=== PATIENT | male | born 1950 | race Caucasian/White ===

== ENCOUNTER 2018-07-03 03:42 | Emergency (ER) | payer MEDICARE, OTHER, SELFPAY ==
[2018-07-03 03:42] VITALS: BP 174/81; PULSE 98; RESP 16; TEMP 36.5; O2SAT 98; BMI 38.8
--- NOTE | 2018-07-03 03:47 | ED.DCSUM_ITS ---
- ER Visit Summary Date of Service: 07/03/18 Chief Complaint: Right hip pain History of Present Illness: The patient is a 68 M presenting for evaluation secondary to right hip pain. Patient reports that he had a history of a left hip total arthroplasty performed approximately 10 or so years ago. Patient s tates that he has not had any sort of new injury, but he reports that he has been having increasing right hip pain and especially over the course of the last 2 days to the point where it is causing him some difficulty with ambulation. Patient reports that this has been refractory to increase use of NSAID and Tylenol analgesia. Patient states that the pain is in his hip worse with movement worse with ambulation and not associated with any sort of fevers night sweats unintended weight loss recent surgery or injections. Physical Examination: Physical exam unremarkable except for lower extremity exam. Patient has 2+ PT pulses that are bilaterally symmetric. Patient has some pain with palpation of the greater trochanter and pain with both internal and external rotation of the hip. Limited range of motion secondary to pain. Test Results: Right hip x-ray demonstrates evidence of some arthritis but no evidence of fracture or bony erosions. Emergency Department Course and Treatment: Patient presented for evaluation secondary to hip pain. He does not have any symptomatology that would be consistent with septic arthritis. Patient's pain was treated with tramadol he had some improvement on repeat evaluation at 5 AM. X-ray shows no evidence of acute pathology. I believe the patient likely has degenerative disease of his hip, I did recommend that he follow-up with his orthopedist as it may be time to pursue total hip arthroplasty. He voiced understanding and the patient was discharged. Disposition: Discharge Impression: 1. Right hip arthritis This note was generated with [employer] dictation software. It may contain incorrect words, spelling, and punctuation that were not noted in review of the chart prior to signing ED Disposition - Plan for ED Patient: Disposition: Home or Assisted Living Chief Complaint: Lower Extremity Injury Diagnosis: Arthritis of right hip Instructions: ED Degenerative Joint Disease Prescriptions: traMADol [Ultram] 50 mg PO Q4H PRN PRN 3 Days #20 tab PRN Reason: Pain Referrals: Davy Guevara [NON-STAFF] -
--- NOTE | 2018-07-03 04:07 | RAD_ITS ---
STUDY: X-RAY - RIGHT HIP REASON FOR EXAM: Male, 68 years old. Pain TECHNIQUE: 2 views of the hip. COMPARISON: None. FINDINGS: Normal femoral head, neck, intertrochanteric region and visualized proximal femur. Normal acetabulum. There is mild articular joint space narrowing. Normal visualized superior and inferior pubic rami and ischial tuberosities. LEFT hip replacement hardware is intact. RAD/HIP, UNI W/ Pelvis 2-3 Views IMPRESSION: Normal x-ray examination of the hip. Electronically Signed: Stephen Villareal MD at 4:54 EST , Service support ,
[2018-07-03] MEDS: traMADol 50 MG Tablet PO (04:25)
[2018-07-03 05:10] VITALS: BP 150/80; PULSE 78; RESP 16; O2SAT 96
== END 2018-07-03 05:10 | disposition home or self-care (01) ==
PROVIDERS: Emergency Provider Emergency Medicine; Family Provider Family Medicine; PCP Family Medicine
DX: M16.11 Unilateral primary osteoarthritis, right hip (principal); E11.9 Type 2 diabetes mellitus without complications; E66.9 Obesity, unspecified; Z68.38 Body mass index [BMI] 38.0-38.9, adult; Z79.4 Long term (current) use of insulin; Z79.82 Long term (current) use of aspirin; Z79.899 Other long term (current) drug therapy
CPT/HCPCS: 73502; 99283

== ENCOUNTER 2018-09-29 19:06 | Inpatient (IN) | payer MEDICARE, OTHER, SELFPAY ==
[2018-09-29 19:07] VITALS: BP 167/84; PULSE 100; RESP 18; TEMP 37.3; O2SAT 96; BMI 41.4
[2018-09-29] MEDS: morphine 10 MG/ML Syringe IM (19:33)
[2018-09-29] MEDS: Ondansetron 4 MG/2 ML Vial IM (19:33)
--- NOTE | 2018-09-29 19:41 | RAD_ITS ---
STUDY: X-RAY - PELVIS AND RIGHT HIP REASON FOR EXAM: Male, 68 years old. Severe back pain. TECHNIQUE: 3 views of the pelvis and hip. COMPARISON: 07/03/2018. FINDINGS: There is a non-specific bowel gas pattern. Normal visualized soft tissue structures. Normal bilateral iliac wings, sacroiliac joints and visualized sacrum. Normal bilateral superior and inferior pubic rami. Normal pubic symphysis. Normal bilateral ischial tuberosities. There are osteoarthritic changes of the femoral head with marginal osteophyte formation. Sclerotic acetabulum. There is moderate articular joint space narrowing of the hip. RAD/HIP, UNI W/ Pelvis 2-3 Views IMPRESSION: No acute fracture or dislocation. Degenerative changes of the hip. Electronically Signed: Álvaro Terry MD at 20:05 EDT , Service support ,
--- NOTE | 2018-09-29 19:41 | RAD_ITS ---
STUDY: X-RAY - LUMBAR SPINE REASON FOR EXAM: Male, 68 years old. SEVERE BACK AND RIGHT HIP PAIN TECHNIQUE: 3 view(s) of the lumbar spine were obtained. COMPARISON: None FINDINGS: Normal lumbar lordosis. There is no substantial scoliosis. There is a normal alignment of the vertebrae. There is multilevel endplate spondylosis of the lumbar vertebrae. There is multi-level degenerative disc disease with multi-level disc space narrowing. There is no demonstrated fracture. There is atherosclerotic calcification of the abdominal aorta without a demonstrated aneurysm. RAD/Lumbar Spine 2 or 3 Views IMPRESSION: No acute abnormality. Degenerative changes. Electronically Signed: Álvaro Terry MD at 20:07 EDT , Service support ,
[2018-09-29] MEDS: diazePAM 5 MG Tablet 2.5 MG PO (20:41)
[2018-09-29 21:08] LABS: Absolute Neutrophil Count 5.4 X10^3/uL (2.0-7.7); Basophil# 0.02 X10^3/uL; Basophil% 0.3 % (0-1); Eosinophil# 0.17 X10^3/uL; Eosinophils% 2.3 % (0-5); Hematocrit 39.7 % (40-54); Hemoglobin 13.4 g/dl (13.0-16.5); Lymphocyte % 14.9 % (19-41); Mean Corp Hgb Conc 33.8 g/gl (32-36); Mean Corpuscular Hgb 30.1 pg (27.0-32.0); Mean Corpuscular Volume 89.2 fL (80-94); Mean Platelet Vol. 9.8 fl (6.2-12.0); Monocyte# 0.66 X10^3/uL; Neutrophil # 5.41 X10^3/uL (2.7-7.7); Neutrophil % 73.4 % (47-70); Platelet Count 176 K/mm3 (150-450); RBC Distribution Width CV 14.6 % (11.6-14.6); RBC Distribution Width SD 46.8 fl (35.1-43.9); Red Blood Count 4.45 M/mm3 (4.6-6.2); White Blood Count 7.4 K/mm3 (4.4-11.0)
[2018-09-29 21:19] LABS: Anion Gap 5 (5-15); BUN 34 mg/dL (7-18); BUN/Creat Ratio 22.4 RATIO (10-20); Calcium,Total 8.8 mg/dL (8.5-10.1); Chloride 109 mmol/L (98-107); Creatinine, Serum 1.52 mg/dL (0.70-1.30); EST Glomerular Filtration Rate 48 mL/min (>60); Est Glom Filt Rate - Afr Amer 59 mL/min (>60); Estimated Creatinine Clearance 43.75 ml/min; Glucose 129 mg/dL (74-106); Potassium 4.7 mmol/L (3.5-5.1); Sodium Level 141 mmol/L (136-145)
[2018-09-29 21:22] LABS: POSITIVE COUNT NO; POSITIVE DIFFERENTIAL NO; POSITIVE MORPHOLOGY NO
--- NOTE | 2018-09-29 21:39 | ED.VISSUMM ---
- ER Visit Summary Date of Service: 09/29/18 Chief Complaint: Right hip pain History of Present Illness: The patient is a 68 M presenting with right hip pain. He states this started on Tuesday. He states he was outside in his garden and twisted his right hip. He has had severe pain since. He was seen by his chiropractor and had no improvement of his symptoms. He has been taking ibuprofen at home. He took 1 Percocet which did seem to help. The pain worsened today. He denies bowel or bladder incontinence. Denies other complaints. Physical Examination: Vitals are stable. Patient is afebrile. Alert no acute distress. HEENT exam is unremarkable. Neck is supple. Lungs are clear and equal bilaterally. Heart is regular rate and rhythm. Abdomen is soft nontender nondistended. Back right paraspinal lumbar muscle tenderness, no midline tenderness Extremities right lateral hip tenderness Skin is warm and dry. No focal neurologic deficit. Normal strength and sensation Remainder of exam is unremarkable. Emergency Department Course and Treatment: Lumbar spine x-ray shows no acute process. Right hip x-ray shows no acute process. CBC, chemistries unremarkable other than BUN 34, creatinine 1.52. Patient was given morphine, Zofran. He continues to have pain and was given Valium. He is unable to stand or ambulate in the ED. Discussed with the hospitalist for observation. Disposition: Observation Impression: Intractable back pain, inability to ambulate This note was generated with [employer] dictation software. It may contain incorrect words, spelling, and punctuation that were not noted in review of the chart prior to signing ED Disposition - Plan for ED Patient: Referrals: Rafael Velasquez III, MD [Primary Care Provider] -
--- NOTE | 2018-09-29 21:40 | PCM.HP.STD ---
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 (5) HTN (hypertension) Status: Chronic Qualifiers: Hypertension type: essential hypertension Qualified Code(s): I10 - Essential (primary) hypertension (6) HLD (hyperlipidemia) Status: Chronic Qualifiers: Hyperlipidemia type: pure hypercholesterolemia Qualified Code(s): E78.00 - Pure hypercholesterolemia, unspecified; E78.0 - Pure hypercholesterolemia (7) CKD (chronic kidney disease) stage 3, GFR 30-59 ml/min Status: Chronic History of Present Illness Date of Admission: 09/29/18 Chief Complaint: Lumbar back pain and leg pain The patient is a 68 y/o M w/ PMHx: CKD stage III, HTN, HLD, Diabetes mellitus type II, Morbid Obesity who presents to the [facility] ED on 09/29/18 with history of progressively worsening, intractable lumbar, right lateral hip and RLE pain, severe in nature, 10/10 with shooting pains down his leg which initially started following gardening this past Tuesday with several visits with his chiropractor without improvement. He notes the discomfort associate V or that he is severely debilitated and cannot even walk. Patient does note right lower extremity paresthesias but denies any loss of bowel or bladder or any other neurological symptoms. Work-up in the ED included T 99.1, heart rate 100, BP 167/84, respiratory rate 18, 96% on room air, CBC with WBC 7.4, hemoglobin 13.4, platelet 176 without market shift, BMP with chloride 109, BUN/creatinine 34/1.52, glucose 129, plain film of the hip and pelvis with no acute fracture or dislocation with degenerative changes, pain film of the lumbar spine with no acute abnormality with only degenerative changes noted. ED patient administered Zofran, morphine, Valium. In the ED given examination with notable discomfort with palpation of the leg, DVT ultrasound was requested and preliminarily negative. Past Medical History Past Medical History (Chronic Problems): Chronic Problems Morbid obesity (Chronic) Diabetes mellitus, type II (Chronic) HTN (hypertension) (Chronic) HLD (hyperlipidemia) (Chronic) CKD (chronic kidney disease) stage 3, GFR 30-59 ml/min (Chronic) Allergies amoxicillin Allergy (Verified 09/29/18 19:11) Unknown simvastatin [From Zocor] Allergy (Verified 09/29/18 19:11) Other MUSCLE CRAMPING Home Medications: Ambulatory Orders Medication Instructions Recorded Gabapentin [Neurontin] 300 mg PO TID 08/16/16 Insulin Glargine,Hum.rec.anlog 40 unit SQ QHS 08/16/16 [Lantus] Lisinopril [Zestril] 10 mg PO DAILY 08/16/16 Metformin HCl [Glucophage] 500 mg PO BIDCM 08/16/16 Pravastatin [Pravachol] 20 mg PO QHS 08/16/16 Aspirin [Aspirin EC] 81 mg PO DAILY 07/03/18 Multivitamin with Minerals 1 each PO DAILY 07/03/18 [Multiple Vitamin] Pioglitazone [Actos] 45 mg PO DAILY 09/29/18 traMADol [Ultram] 50 mg PO Q4H PRN PRN 09/29/18 Surgical History: - - Pilonidal cyst intervention, cholecystectomy, nephrolithiasis intervention x4. Psychiatric History: No pertinent psych hx Lives: Spouse/ Significant Other Smoking Status: Never smoker Tobacco Use: Non-smoker Alcohol: None Drugs: None - *Family History Maternal History Items: - - Patient notes a maternal family history of heart disease, mother currently living, age 98 with CHF. Paternal History Items: - - Patient notes a paternal family history of heart disease, coronary disease. Review of Systems Constitutional: Reports: Malaise, Weakness, Fatigue. Denies: Chills, Fever, Weight Change HEENT: Denies: Head Aches, Sinus Congestion, Sinus Drainage Cardiovascular: Denies: Chest Pain, Palpitations Respiratory: Denies: Cough, Shortness of breath at rest, Sputum production Gastrointestinal: Denies: Abdominal Pain, Nausea, Vomiting Genitourinary: Denies: Dysuria Musculoskeletal: Reports: Back Pain, Joint Pain, Joint stiffness, Joint swelling, Joint Tenderness, Leg Pain Skin: Denies: Rash, Wounds Neurological: Reports: Tingling. Denies: Focal weakness, Numbness Psychiatric: Denies: Anxiety, Depression, Homicidal Ideations, Suicidal Ideations Hematologic/ Lymphatic: Denies: Easy Bruising, Easy Bleeding VTE Information - Inpt Only VTE Present on Admission: No VTE Mechan Device Prophylaxis: SCD's VTE Pharm Prophylaxis ordered?: Yes Patient Problems: Active and Suspected Problems Intractable back pain (Acute) Radiculopathy (Acute) Subjective: Laying in the ED bed, uncomfortable appearing, notes ongoing discomfort to the right lumbar, right lateral hip and right lower extremity. Objective: Physical Examination: General: awake, alert, oriented x 3 and cooperative, laying in the ED bed, uncomfortable appearing. Skin: normal color, turgor, no icterus, cyanosis. HEENT: AT/NC, EOMI, PERRLA, moderately dry MM, no carotid bruits or JVD noted; however, thickened neck makes examination difficult. Lungs: CTA bilaterally, moderate effort, mild decrease BL bases, no rales, ronchi or wheezing to side and and anterior examination given debility. Heart: Regular rate and rhythm; no gallop, rub audible. Abdomen: soft, morbidly obese, NTTP, ND, normal BS, no HSM; however habitus makes examination difficult. Extremities: no cyanosis, clubbing, or edema, severe tenderness with palpation of the right lower extremity with preliminarily DVT study unremarkable, severe discomfort with any attempted straight leg raise of the right lower extremity. Neurological: patient awake, alert, oriented x 3; cognitive function intact; pupils equally reactive to light and accomodation; cranial nerves II-XII grossly normal, moving all 4 extremities but very limited right lower extremity secondary intractable pain, notes paresthesias Psychiatric: affect appears strained, no acute evidence of depressive or anxiety feelings. - Physical Exam Vital Signs Temp Pulse Resp BP Pulse Ox 99.1 F 100 18 167/84 H 96 09/29/18 19:07 09/29/18 19:07 09/29/18 19:07 09/29/18 19:07 09/29/18 19:07 Oxygen Delivery Method Room Air Weight: 272 lb 11.389 oz Body Mass Index (BMI) 41.4 Laboratory Tests Past 24 Hrs 09/29/18 09/29/18 20:48 20:48 WBC 7.4 RBC 4.45 L Hgb 13.4 Hct 39.7 L MCV 89.2 MCH 30.1 MCHC 33.8 RDW 14.6 RDW Differential 46.8 H Plt Count 176 MPV 9.8 Immature Gran % (Auto) 0.100 Neut % (Auto) 73.4 H Lymph % (Auto) 14.9 L [place] % (Auto) 9.0 Eos % (Auto) 2.3 Baso % (Auto) 0.3 Absolute Neuts (auto) 5.4 Absolute Lymphs (auto) 1.10 Total Counted Not Reportable Sodium 141 Potassium 4.7 Chloride 109 H Carbon Dioxide 27.0 Anion Gap 5 BUN 34 H Creatinine 1.52 H Estim Creat Clear Calc 43.75 Est GFR (MDRD) Af Amer 59 L Est GFR (MDRD) Non-Af 48 L BUN/Creatinine Ratio 22.4 H Glucose 129 H Calcium 8.8 Assessment/Plan All Active Problems Intractable back pain (Acute) Radiculopathy (Acute) The patient is a 68 y/o M w/ PMHx: CKD stage III, HTN, HLD, Diabetes mellitus type II, Morbid Obesity who presents to the [facility] ED on 09/29/18 with history of progressively worsening, intractable lumbar, right lateral hip and RLE pain, severe in nature, 03/29 with shooting pains down his leg which initially started following gardening this past Tuesday with several visits with his chiropractor without improvement. He notes the discomfort associate V or that he is severely debilitated and cannot even walk. (1) Acute Intractable Back Pain, R Hip and RLE pain, suspected Radiculopathy: Work-up in the ED included T 99.1, heart rate 100, BP 167/84, respiratory rate 18, 96% on room air, CBC with WBC 7.4, hemoglobin 13.4, platelet 176 without market shift, BMP with chloride 109, BUN/creatinine 34/1.52, glucose 129, plain film of the hip and pelvis with no acute fracture or dislocation with degenerative changes, pain film of the lumbar spine with no acute abnormality with only degenerative changes noted. ED DVT US negative. Will admit to [facility], maintain on fall precautions, frequent positioning, po/IV pain regimen, low dose gabapentin, scheduled low dose toradol with limited dosing given CKD, flexeril PRN, initiate burst prednisone regimen, anti-emetics, bowel regimen. Will consult PT and OT for evaluation. If ongoing intractable pain would obtain MRI to further evaluation. (2) Diabetes mellitus type II: Hold oral home regimen, continue home insulin regimen, ADA diet, accu checks w/ ISS. (3) Hypertension: Continue home regimen including lisinopril, PRN hydralazine. (4) Hyperlipidemia: Continue home statin regimen. (5) Chronic Kidney Disease Stage III: Admission BUN/Cr 34/1.52, baseline renal function 1.5, repeat BMP in AM. (6) Morbid Obesity: Weight loss and lifestyle changes encouraged, nutrition consulted. (7) DVT prophylaxis: SCDs, renally dose Lovenox. Code Visit OBSV E&M: 35671 Initial observation care L3
--- NOTE | 2018-09-29 21:43 | HP.PCM_ITS ---
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 (5) HTN (hypertension) Status: Chronic Qualifiers: Hypertension type: essential hypertension Qualified Code(s): I10 - Essential (primary) hypertension (6) HLD (hyperlipidemia) Status: Chronic Qualifiers: Hyperlipidemia type: pure hypercholesterolemia Qualified Code(s): E78.00 - Pure hypercholesterolemia, unspecified; E78.0 - Pure hypercholesterolemia (7) CKD (chronic kidney disease) stage 3, GFR 30-59 ml/min Status: Chronic History of Present Illness Date of Admission: 09/29/18 Chief Complaint: Lumbar back pain and leg pain The patient is a 68 y/o M w/ PMHx: CKD stage III, HTN, HLD, Diabetes mellitus type II, Morbid Obesity who presents to the [facility] ED on 09/29/18 with history of progressively worsening, intractable lumbar, right lateral hip and RLE pain, severe in nature, 10/10 with shooting pains down his leg which initially started following gardening this past Tuesday with several visits with his chiropractor without improvement. He notes the discomfort associate V or that he is severely debilitated and cannot even walk. Patient does note right lower extremity paresthesias but denies any loss of bowel or bladder or any other neurological symptoms. Work-up in the ED included T 99.1, heart rate 100, BP 167/84, respiratory rate 18, 96% on room air, CBC with WBC 7.4, hemoglobin 13.4, platelet 176 without market shift, BMP with chloride 109, BUN/creatinine 34/1.52, glucose 129, plain film of the hip and pelvis with no acute fracture or dislocation with degenerative changes, pain film of the lumbar spine with no acute abnormality with only degenerative changes noted. ED patient administered Zofran, morphine, Valium. In the ED given examination with notable discomfort with palpation of the leg, DVT ultrasound was requested and preliminarily negative. Past Medical History Past Medical History (Chronic Problems): Chronic Problems Morbid obesity (Chronic) Diabetes mellitus, type II (Chronic) HTN (hypertension) (Chronic) HLD (hyperlipidemia) (Chronic) CKD (chronic kidney disease) stage 3, GFR 30-59 ml/min (Chronic) Allergies amoxicillin Allergy (Verified 09/29/18 19:11) Unknown simvastatin [From Zocor] Allergy (Verified 09/29/18 19:11) Other MUSCLE CRAMPING Home Medications: Ambulatory Orders Medication Instructions Recorded Gabapentin [Neurontin] 300 mg PO TID 08/16/16 Insulin Glargine,Hum.rec.anlog 40 unit SQ QHS 08/16/16 [Lantus] Lisinopril [Zestril] 10 mg PO DAILY 08/16/16 Metformin HCl [Glucophage] 500 mg PO BIDCM 08/16/16 Pravastatin [Pravachol] 20 mg PO QHS 08/16/16 Aspirin [Aspirin EC] 81 mg PO DAILY 07/03/18 Multivitamin with Minerals 1 each PO DAILY 07/03/18 [Multiple Vitamin] Pioglitazone [Actos] 45 mg PO DAILY 09/29/18 traMADol [Ultram] 50 mg PO Q4H PRN PRN 09/29/18 Surgical History: - - Pilonidal cyst intervention, cholecystectomy, nephrolithiasis intervention x4. Psychiatric History: No pertinent psych hx Lives: Spouse/ Significant Other Smoking Status: Never smoker Tobacco Use: Non-smoker Alcohol: None Drugs: None - *Family History Maternal History Items: - - Patient notes a maternal family history of heart disease, mother currently living, age 98 with CHF. Paternal History Items: - - Patient notes a paternal family history of heart disease, coronary disease. Review of Systems Constitutional: Reports: Malaise, Weakness, Fatigue. Denies: Chills, Fever, Weight Change HEENT: Denies: Head Aches, Sinus Congestion, Sinus Drainage Cardiovascular: Denies: Chest Pain, Palpitations Respiratory: Denies: Cough, Shortness of breath at rest, Sputum production Gastrointestinal: Denies: Abdominal Pain, Nausea, Vomiting Genitourinary: Denies: Dysuria Musculoskeletal: Reports: Back Pain, Joint Pain, Joint stiffness, Joint swelling, Joint Tenderness, Leg Pain Skin: Denies: Rash, Wounds Neurological: Reports: Tingling. Denies: Focal weakness, Numbness Psychiatric: Denies: Anxiety, Depression, Homicidal Ideations, Suicidal Ideations Hematologic/ Lymphatic: Denies: Easy Bruising, Easy Bleeding VTE Information - Inpt Only VTE Present on Admission: No VTE Mechan Device Prophylaxis: SCD's VTE Pharm Prophylaxis ordered?: Yes Patient Problems: Active and Suspected Problems Intractable back pain (Acute) Radiculopathy (Acute) Subjective: Laying in the ED bed, uncomfortable appearing, notes ongoing discomfort to the right lumbar, right lateral hip and right lower extremity. Objective: Physical Examination: General: awake, alert, oriented x 3 and cooperative, laying in the ED bed, uncomfortable appearing. Skin: normal color, turgor, no icterus, cyanosis. HEENT: AT/NC, EOMI, PERRLA, moderately dry MM, no carotid bruits or JVD noted; however, thickened neck makes examination difficult. Lungs: CTA bilaterally, moderate effort, mild decrease BL bases, no rales, r onchi or wheezing to side and and anterior examination given debility. Heart: Regular rate and rhythm; no gallop, rub audible. Abdomen: soft, morbidly obese, NTTP, ND, normal BS, no HSM; however habitus makes examination difficult. Extremities: no cyanosis, clubbing, or edema, severe tenderness with palpation of the right lower extremity with preliminarily DVT study unremarkable, severe discomfort with any attempted straight leg raise of the right lower extremity. Neurological: patient awake, alert, oriented x 3; cognitive function intact; pupils equally reactive to light and accomodation; cranial nerves II-XII grossly normal, moving all 4 extremities but very limited right lower extremity secondary intractable pain, notes paresthesias Psychiatric: affect appears strained, no acute evidence of depressive or anxiety feelings. - Physical Exam Vital Signs Temp Pulse Resp BP Pulse Ox 99.1 F 100 18 167/84 H 96 09/29/18 19:07 09/29/18 19:07 09/29/18 19:07 09/29/18 19:07 09/29/18 19:07 Oxygen Delivery Method Room Air Weight: 272 lb 11.389 oz Body Mass Index (BMI) 41.4 Laboratory Tests Past 24 Hrs 09/29/18 09/29/18 20:48 20:48 WBC 7.4 RBC 4.45 L Hgb 13.4 Hct 39.7 L MCV 89.2 MCH 30.1 MCHC 33.8 RDW 14.6 RDW Differential 46.8 H Plt Count 176 MPV 9.8 Immature Gran % (Auto) 0.100 Neut % (Auto) 73.4 H Lymph % (Auto) 14.9 L [place] % (Auto) 9.0 Eos % (Auto) 2.3 Baso % (Auto) 0.3 Absolute Neuts (auto) 5.4 Absolute Lymphs (auto) 1.10 Total Counted Not Reportable Sodium 141 Potassium 4.7 Chloride 109 H Carbon Dioxide 27.0 Anion Gap 5 BUN 34 H Creatinine 1.52 H Estim Creat Clear Calc 43.75 Est GFR (MDRD) Af Amer 59 L Est GFR (MDRD) Non-Af 48 L BUN/Creatinine Ratio 22.4 H Glucose 129 H Calcium 8.8 Assessment/Plan All Active Problems Intractable back pain (Acute) Radiculopathy (Acute) The patient is a 68 y/o M w/ PMHx: CKD stage III, HTN, HLD, Diabetes mellitus type II, Morbid Obesity who presents to the [facility] ED on 09/29/18 with history of progressively worsening, intractable lumbar, right lateral hip and RLE pain, severe in nature, 03/29 with shooting pains down his leg which initially started following gardening this past Tuesday with several visits with his chiropractor without improvement. He notes the discomfort associate V or that he is severely debilitated and cannot even walk. (1) Acute Intractable Back Pain, R Hip and RLE pain, suspected Radiculopathy: Work-up in the ED included T 99.1, heart rate 100, BP 167/84, respiratory rate 18, 96% on room air, CBC with WBC 7.4, hemoglobin 13.4, platelet 176 without market shift, BMP with chloride 109, BUN/creatinine 34/1.52, glucose 129, plain film of the hip and pelvis with no acute fracture or dislocation with degenerative changes, pain film of the lumbar spine with no acute abnormality with only degenerative changes noted. ED DVT US negative. Will admit to [facility], maintain on fall precautions, frequent positioning, po/IV pain regimen, low dose gabapentin, scheduled low dose toradol with limited dosing given CKD, flexeril PRN, initiate burst prednisone regimen, anti-emetics, bowel regimen. Will consult PT and OT for evaluation. If ongoing intractable pain would obtain MRI to further evaluation. (2) Diabetes mellitus type II: Hold oral home regimen, continue home insulin regimen, ADA diet, accu checks w/ ISS. (3) Hypertension: Continue home regimen including lisinopril, PRN hydralazine. (4) Hyperlipidemia: Continue home statin regimen. (5) Chronic Kidney Disease Stage III: Admission BUN/Cr 34/1.52, baseline renal function 1.5, repeat BMP in AM. (6) Morbid Obesity: Weight loss and lifestyle changes encouraged, nutrition consulted. (7) DVT prophylaxis: SCDs, renally dose Lovenox. Code Visit OBSV E&M: 39951 Initial observation care L3
--- NOTE | 2018-09-29 22:13 | US_ITS ---
STUDY: VENOUS DOPPLER ULTRASOUND - RIGHT LOWER EXTREMITY REASON FOR EXAM: Male, 68 years old. Right leg pain TECHNIQUE: Ultrasound evaluation of the deep vein system to include herrera-scale imaging and compression was performed. Herrera-scale imaging and Doppler sonographic evaluation, including duplex spectral analysis and qualitative color flow sonography, was performed. COMPARISON: None. FINDINGS: Common Femoral Vein: Normal compression, spontaneity and augmentation. Normal color Doppler. Common Femoral Vein/Greater Saphenous Junction: Normal compression, spontaneity and augmentation. Normal color Doppler. Deep Femoral Vein: Normal compression, spontaneity and augmentation. Normal color Doppler. Femoral Proximal: Normal compression, spontaneity and augmentation. Normal color Doppler. Femoral Middle: Normal compression, spontaneity and augmentation. Normal color Doppler. Femoral Distal: Normal compression, spontaneity and augmentation. Normal color Doppler. Popliteal Vein: Normal compression, spontaneity and augmentation. Normal color Doppler. Posterior Tibial Vein: Normal compression, spontaneity and augmentation. Normal color Doppler. Peroneal Vein: Normal compression, spontaneity and augmentation. Normal color Doppler. US/Venous Duplex Imag/Limited/Uni IMPRESSION: Normal venous Doppler ultrasound of the lower extremity. Electronically Signed: Peter Dozier MD at 23:14 EDT , Service support ,
[2018-09-29 23:27] VITALS: BP 130/78; PULSE 95; RESP 16; TEMP 36.6; O2SAT 92
[2018-09-29 23:28] VITALS: BMI 40.1
[2018-09-29 23:34] VITALS: BMI 40.1
[2018-09-30] MEDS: Morphine 2 MG/ML Syringe IV ×3 (00:07→15:47)
[2018-09-30] MEDS: Pravastatin 20 MG Tablet PO ×2 (00:26→21:58)
[2018-09-30] MEDS: predniSONE 20 MG Tablet 40 MG PO (00:26)
[2018-09-30] MEDS: Ketorolac 15 MG/ML Vial IV ×2 (00:40→06:07)
[2018-09-30] MEDS: Gabapentin 300 MG Capsule 900 MG PO ×4 (00:40→21:58)
[2018-09-30 00:46] LABS: Bedside Glucose 118 mg/dL (70-110)
[2018-09-30] MEDS: HYDROcodone Bitartrate/Apap 5/325 Tablet PO ×3 (02:21→14:40)
[2018-09-30 06:04] VITALS: BP 135/75; PULSE 85; RESP 18; TEMP 36.5; O2SAT 92
[2018-09-30] MEDS: Enoxaparin 40 MG/0.4 ML Syringe SC (06:07)
[2018-09-30] MEDS: Insulin Lispro 100 UNIT/ML INSULN.PEN SC ×4 (06:47→21:58)
[2018-09-30 06:50] LABS: Bedside Glucose 171 mg/dL (70-110)
[2018-09-30 06:55] VITALS: O2SAT 92
[2018-09-30 07:05] LABS: Absolute Lymphocyte Count 0.78 X10^3/ul (0.83-4.51); Basophil# 0.01 X10^3/uL; Basophil% 0.1 % (0-1); Eosinophil# 0.01 X10^3/uL; Eosinophils% 0.1 % (0-5); Hematocrit 40.4 % (40-54); Hemoglobin 13.5 g/dl (13.0-16.5); Lymphocyte # 0.78 X10^3/ul (4.0); Lymphocyte % 11.3 % (19-41); Mean Corp Hgb Conc 33.4 g/gl (32-36); Mean Corpuscular Hgb 30.3 pg (27.0-32.0); Mean Corpuscular Volume 90.6 fL (80-94); Monocyte# 0.07 X10^3/uL; Neutrophil # 6.01 X10^3/uL (2.7-7.7); Neutrophil % 87.4 % (47-70); Platelet Count 178 K/mm3 (150-450); RBC Distribution Width CV 14.8 % (11.6-14.6); RBC Distribution Width SD 48.5 fl (35.1-43.9); Red Blood Count 4.46 M/mm3 (4.6-6.2); White Blood Count 6.9 K/mm3 (4.4-11.0)
[2018-09-30 07:12] LABS: POSITIVE COUNT NO; POSITIVE DIFFERENTIAL NO; POSITIVE MORPHOLOGY NO
[2018-09-30 07:25] LABS: Anion Gap 5 (5-15); BUN 32 mg/dL (7-18); BUN/Creat Ratio 19.9 RATIO (10-20); Calcium,Total 8.7 mg/dL (8.5-10.1); Chloride 109 mmol/L (98-107); Creatinine, Serum 1.61 mg/dL (0.70-1.30); EST Glomerular Filtration Rate 45 mL/min (>60); Est Glom Filt Rate - Afr Amer 55 mL/min (>60); Glucose 160 mg/dL (74-106); Sodium Level 140 mmol/L (136-145)
[2018-09-30 08:50] VITALS: BP 144/90; PULSE 80; RESP 18; TEMP 36.8; O2SAT 92
[2018-09-30] MEDS: Lisinopril 10 MG Tablet PO (08:50)
[2018-09-30] MEDS: Aspirin E.C. 81 MG Tablet PO (08:50)
--- NOTE | 2018-09-30 10:59 | MRI_ITS ---
STUDY: MRI LUMBAR SPINE WITHOUT CONTRAST REASON FOR EXAM: Male, 68 years old. Low back pain radiating into the right hip TECHNIQUE: Standardized fat and water weighted pulse sequences were obtained in the sagittal and axial planes. COMPARISON: Lumbar spine radiograph September 29, 2018 FINDINGS: T12-L1: Normal endplates. Normal disc height, hydration and morphology. Normal bilateral facet joints. Normal central canal and bilateral lateral recesses. Normal bilateral intervertebral neural foramina. Normal lumbar lordosis. There is no substantial scoliosis. Normal conus medullaris that terminates at the L1 level. L1-2: Moderate central and lateral trefoil type spinal stenosis due to circumferential disc marginal osteophyte and hypertrophic facet disease. L2-3: Normal endplates. Normal disc height, hydration and morphology. Normal bilateral facet joints. Normal central canal and bilateral lateral recesses. Mild annular bulge. Mild narrowing bilateral intervertebral neural foramina. L3-4: Moderate circumferential annular bulge causing severe narrowing of the neural foramen on the right moderately severe narrowing on the left. Central canal patent. L4-5: Moderate circumferential annular bulge causing severe narrowing of the neural foramen on the right moderately severe narrowing on the left. Central canal patent. L5-S1: Moderate circumferential annular bulge and neural foraminal narrowing, left greater than right. Central canal patent. Normal visualized sacral ala. Normal visualized paraspinous soft tissue structures. MRI/Spine Lumbar (Routine) IMPRESSION: Multilevel degenerative disc disease and spinal stenosis as above. Electronically Signed: Peter Dozier MD at 16:10 EDT , Service support ,
[2018-09-30 12:00] LABS: Bedside Glucose 217 mg/dL (70-110)
--- NOTE | 2018-09-30 14:33 | PCM.PROGNOTE ---
Patient Problems: Active and Suspected Problems Intractable back pain (Acute) Radiculopathy (Acute) Subjective: Patient was seen and examined today, he still complains of right leg pain, I decided to order an MRI of his lumbar spine today, I placed him on IV Decadron. - Physical Exam General: Alert, Oriented x3, Cooperative, No apparent distress, Well developed, Well nourished HEENT: Atraumatic, PERRLA, EOMI, Normocephalic Oral: Moist Mucosa Neck: Supple, No Nuchal Rigidity, Trachea Midline, Thyroid Normal Size and Texture Lungs: Clear to auscultation, Normal air movement, No rhonchi, No wheeze, No rales Cardiovascular: Regular rate, Regular Rhythm, Normal S1, Normal S2, No murmurs, No Ectopic Activity, PMI Normal, No rub noted, No Gallop Abdomen: Bowel Sounds Present, Soft, Non Tender, Non-Distended, Obese, No hernias noted Extremities: No clubbing, No cyanosis, No edema, Capillary Refill Less than 3 Seconds Skin: No rashes, No breakdown Musculoskeletal: No Tenderness to Palpation of Joints or Extremities Neurological: Cranial nerves II-XII grossly intact, Neuro grossly intact, Sensory exam intact to light touch and pain Psych/Mental Status: Normal Affect, Appropriate, Alert and oriented to time, place, person, mood and affect Vital Signs Temp Pulse Resp BP Pulse Ox 98.3 F 80 18 144/90 H 92 09/30/18 08:50 09/30/18 08:50 09/30/18 08:50 09/30/18 08:50 09/30/18 08:50 Oxygen Delivery Method Room Air Weight: 119.7 kg Body Mass Index (BMI) 40.1 Intake and Output for Last 24 Hours 09/28/18 09/29/18 09/30/18 23:59 23:59 23:59 Intake Total 490 / 490 Output Total 225 / 225 Balance 265 / 265 Laboratory Tests Past 24 Hrs 09/29/18 09/29/18 09/29/18 20:48 20:48 20:48 WBC 7.4 RBC 4.45 L Hgb 13.4 Hct 39.7 L MCV 89.2 MCH 30.1 MCHC 33.8 RDW 14.6 RDW Differential 46.8 H Plt Count 176 MPV 9.8 Immature Gran % (Auto) 0.100 Neut % (Auto) 73.4 H Lymph % (Auto) 14.9 L [place] % (Auto) 9.0 Eos % (Auto) 2.3 Baso % (Auto) 0.3 Absolute Neuts (auto) 5.4 Absolute Lymphs (auto) 1.10 Total Counted Not Reportable Sodium 141 Potassium 4.7 Chloride 109 H Carbon Dioxide 27.0 Anion Gap 5 BUN 34 H Creatinine 1.52 H Estim Creat Clear Calc 43.75 Est GFR (MDRD) Af Amer 59 L Est GFR (MDRD) Non-Af 48 L BUN/Creatinine Ratio 22.4 H Glucose 129 H Calcium 8.8 Magnesium 2.0 09/30/18 09/30/18 06:20 06:20 WBC 6.9 RBC 4.46 L Hgb 13.5 Hct 40.4 MCV 90.6 MCH 30.3 MCHC 33.4 RDW 14.8 H RDW Differential 48.5 H Plt Count 178 MPV 10.0 Immature Gran % (Auto) 0.100 Neut % (Auto) 87.4 H Lymph % (Auto) 11.3 L [place] % (Auto) 1.0 Eos % (Auto) 0.1 Baso % (Auto) 0.1 Absolute Neuts (auto) 6.0 Absolute Lymphs (auto) 0.78 L Total Counted Not Reportable Sodium 140 Potassium 5.0 Chloride 109 H Carbon Dioxide 26.0 Anion Gap 5 BUN 32 H Creatinine 1.61 H Estim Creat Clear Calc 41.30 Est GFR (MDRD) Af Amer 55 L Est GFR (MDRD) Non-Af 45 L BUN/Creatinine Ratio 19.9 Glucose 160 H Calcium 8.7 Magnesium POC Glucose 09/30/18 09/30/18 09/30/18 11:12 06:41 00:30 POC Glucose 217 H 171 H 118 H Medical Necessity - Tobacco Use Smoking Status: Never smoker Tobacco Use: Non-smoker Assessment/Plan All Active Problems Intractable back pain (Acute) Radiculopathy (Acute) #1 acute right leg radiculopathy secondary to degenerative joint disease lumbar spine-again patient was placed on IV Decadron, he will have an MRI performed today, PT and OT will see the patient #2 degenerative joint disease of the lumbar spine #3 morbid obesity #4 Type 2 diabetes-blood sugars will be monitored, sliding scale insulin will be used if needed #5 hypertension Code Visit Inpatient E&M: [id number] Init Hosp L3
[2018-09-30 14:40] VITALS: BP 118/70; PULSE 97; RESP 16; TEMP 36.8; O2SAT 92
--- NOTE | 2018-09-30 14:40 | PN_ITS ---
Patient Problems: Active and Suspected Problems Intractable back pain (Acute) Radiculopathy (Acute) Subjective: Patient was seen and examined today, he still complains of right leg pain, I decided to order an MRI of his lumbar spine today, I placed him on IV Decadron. - Physical Exam General: Alert, Oriented x3, Cooperative, No apparent distress, Well developed, Well nourished HEENT: Atraumatic, PERRLA, EOMI, Normocephalic Oral: Moist Mucosa Neck: Supple, No Nuchal Rigidity, Trachea Midline, Thyroid Normal Size and Texture Lungs: Clear to auscultation, Normal air movement, No rhonchi, No wheeze, No rales Cardiovascular: Regular rate, Regular Rhythm, Normal S1, Normal S2, No murmurs, No Ectopic Activity, PMI Normal, No rub noted, No Gallop Abdomen: Bowel Sounds Present, Soft, Non Tender, Non-Distended, Obese, No hernias noted Extremities: No clubbing, No cyanosis, No edema, Capillary Refill Less than 3 Se conds Skin: No rashes, No breakdown Musculoskeletal: No Tenderness to Palpation of Joints or Extremities Neurological: Cranial nerves II-XII grossly intact, Neuro grossly intact, Sensory exam intact to light touch and pain Psych/Mental Status: Normal Affect, Appropriate, Alert and oriented to time, place, person, mood and affect Vital Signs Temp Pulse Resp BP Pulse Ox 98.3 F 80 18 144/90 H 92 09/30/18 08:50 09/30/18 08:50 09/30/18 08:50 09/30/18 08:50 09/30/18 08:50 Oxygen Delivery Method Room Air Weight: 119.7 kg Body Mass Index (BMI) 40.1 Intake and Output for Last 24 Hours 09/28/18 09/29/18 09/30/18 23:59 23:59 23:59 Intake Total 490 / 490 Output Total 225 / 225 Balance 265 / 265 Laboratory Tests Past 24 Hrs 09/29/18 09/29/18 09/29/18 20:48 20:48 20:48 WBC 7.4 RBC 4.45 L Hgb 13.4 Hct 39.7 L MCV 89.2 MCH 30.1 MCHC 33.8 RDW 14.6 RDW Differential 46.8 H Plt Count 176 MPV 9.8 Immature Gran % (Auto) 0.100 Neut % (Auto) 73.4 H Lymph % (Auto) 14.9 L [place] % (Auto) 9.0 Eos % (Auto) 2.3 Baso % (Auto) 0.3 Absolute Neuts (auto) 5.4 Absolute Lymphs (auto) 1.10 Total Counted Not Reportable Sodium 141 Potassium 4.7 Chloride 109 H Carbon Dioxide 27.0 Anion Gap 5 BUN 34 H Creatinine 1.52 H Estim Creat Clear Calc 43.75 Est GFR (MDRD) Af Amer 59 L Est GFR (MDRD) Non-Af 48 L BUN/Creatinine Ratio 22.4 H Glucose 129 H Calcium 8.8 Magnesium 2.0 09/30/18 09/30/18 06:20 06:20 WBC 6.9 RBC 4.46 L Hgb 13.5 Hct 40.4 MCV 90.6 MCH 30.3 MCHC 33.4 RDW 14.8 H RDW Differential 48.5 H Plt Count 178 MPV 10.0 Immature Gran % (Auto) 0.100 Neut % (Auto) 87.4 H Lymph % (Auto) 11.3 L [place] % (Auto) 1.0 Eos % (Auto) 0.1 Baso % (Auto) 0.1 Absolute Neuts (auto) 6.0 Absolute Lymphs (auto) 0.78 L Total Counted Not Reportable Sodium 140 Potassium 5.0 Chloride 109 H Carbon Dioxide 26.0 Anion Gap 5 BUN 32 H Creatinine 1.61 H Estim Creat Clear Calc 41.30 Est GFR (MDRD) Af Amer 55 L Est GFR (MDRD) Non-Af 45 L BUN/Creatinine Ratio 19.9 Glucose 160 H Calcium 8.7 Magnesium POC Glucose 09/30/18 09/30/18 09/30/18 11:12 06:41 00:30 POC Glucose 217 H 171 H 118 H Medical Necessity - Tobacco Use Smoking Status: Never smoker Tobacco Use: Non-smoker Assessment/Plan All Active Problems Intractable back pain (Acute) Radiculopathy (Acute) #1 acute right leg radiculopathy secondary to degenerative joint disease lumbar spine-again patient was placed on IV Decadron, he will have an MRI performed today, PT and OT will see the patient #2 degenerative joint disease of the lumbar spine #3 morbid obesity #4 Type 2 diabetes-blood sugars will be monitored, sliding scale insulin will be used if needed #5 hypertension Code Visit Inpatient E&M: [id number] Init Hosp L3
[2018-09-30] MEDS: 0.9% NaCl Peripheral Flush Adult/Peds IV ×2 (18:19→23:47)
[2018-09-30 18:56] LABS: Bedside Glucose 238 mg/dL (70-110)
[2018-09-30 20:32] VITALS: BP 138/70; PULSE 96; RESP 18; TEMP 36.7; O2SAT 92
[2018-09-30 22:05] LABS: Bedside Glucose 248 mg/dL (70-110)
[2018-09-30] MEDS: Famotidine 20 MG Tablet PO (23:03)
[2018-09-30] MEDS: Mag Hydrox/Al Hydrox/Simeth 30 ML UDC PO (23:05)
[2018-10-01] MEDS: Morphine 2 MG/ML Syringe IV (01:14)
[2018-10-01] MEDS: 0.9% NaCl Peripheral Flush Adult/Peds IV ×3 (01:14→11:08)
[2018-10-01 01:19] VITALS: BP 133/68; PULSE 96; RESP 18; TEMP 36.9; O2SAT 93
[2018-10-01] MEDS: Gabapentin 300 MG Capsule 900 MG PO ×3 (06:32→21:08)
[2018-10-01] MEDS: Enoxaparin 40 MG/0.4 ML Syringe SC (06:32)
[2018-10-01] MEDS: Insulin Lispro 100 UNIT/ML INSULN.PEN SC ×4 (06:38→21:05)
[2018-10-01 07:15] VITALS: O2SAT 95
[2018-10-01] MEDS: HYDROcodone Bitartrate/Apap 5/325 Tablet PO ×2 (08:36→17:25)
[2018-10-01] MEDS: Aspirin E.C. 81 MG Tablet PO (08:36)
[2018-10-01] MEDS: Lisinopril 10 MG Tablet PO (08:36)
[2018-10-01] MEDS: Famotidine 20 MG Tablet PO (08:36)
[2018-10-01 08:39] VITALS: BP 139/64; PULSE 79; RESP 18; TEMP 36.7; O2SAT 94
[2018-10-01 11:25] LABS: Bedside Glucose 206 mg/dL (70-110)
[2018-10-01 15:25] VITALS: BP 156/84; PULSE 75; RESP 18; TEMP 37.1; O2SAT 94
--- NOTE | 2018-10-01 15:40 | PCM.PROGNOTE ---
Patient Problems: Active and Suspected Problems Intractable back pain (Acute) Radiculopathy (Acute) Subjective: Patient was seen and examined today, he is able to stand better but he is still limited on his ambulation due to right leg pain. - Physical Exam General: Alert, Oriented x3, Cooperative, No apparent distress, Well developed, Well nourished HEENT: Atraumatic, PERRLA, EOMI, Normocephalic Oral: Moist Mucosa Neck: Supple, Trachea Midline, Thyroid Normal Size and Texture Lungs: Clear to auscultation, Normal air movement, No rhonchi, No wheeze, No rales Cardiovascular: Regular rate, Regular Rhythm, Normal S1, Normal S2, No murmurs, No Ectopic Activity, PMI Normal, No rub noted, No Gallop Abdomen: Bowel Sounds Present, Soft, Non Tender, Obese Extremities: No clubbing, No cyanosis, No edema, Capillary Refill Less than 3 Seconds Skin: No rashes, No breakdown Musculoskeletal: No Tenderness to Palpation of Joints or Extremities Neurological: Cranial nerves II-XII grossly intact, Neuro grossly intact, Sensory exam intact to light touch and pain Psych/Mental Status: Normal Affect, Appropriate, Alert and oriented to time, place, person, mood and affect Vital Signs Temp Pulse Resp BP Pulse Ox 98.7 F 75 18 156/84 H 94 10/01/18 15:25 10/01/18 15:25 10/01/18 15:25 10/01/18 15:25 10/01/18 15:25 Oxygen Delivery Method Room Air Weight: 119.7 kg Body Mass Index (BMI) 40.1 Intake and Output for Last 24 Hours 09/29/18 09/30/18 10/01/18 23:59 23:59 23:59 Intake Total 990 / 990 420 / 420 Output Total 550 / 550 Balance 440 / 440 420 / 420 POC Glucose 10/01/18 09/30/18 09/30/18 11:05 21:55 16:53 POC Glucose 206 H 248 H 238 H Medical Necessity - Tobacco Use Smoking Status: Never smoker Tobacco Use: Non-smoker Assessment/Plan All Active Problems Intractable back pain (Acute) Radiculopathy (Acute) #1 acute right leg radiculopathy secondary to degenerative joint disease lumbar spine with spinal stenosis-patient will remain on IV Decadron for now, he will undergo a nerve block tomorrow by pain management, PT and OT continue to work with the patient #2 spinal stenosis #3 multilevel degenerative joint disease of the lumbar spine #4 morbid obesity #5 Type 2 diabetes-blood sugars will be monitored, sliding scale insulin will be used if needed #6 hypertension Code Visit Inpatient E&M: [id number] Subs Hosp L2
[2018-10-01 16:06] LABS: Bedside Glucose 236 mg/dL (70-110)
[2018-10-01 20:47] VITALS: BP 146/71; PULSE 82; RESP 16; TEMP 36.9; O2SAT 95
[2018-10-01] MEDS: Pravastatin 20 MG Tablet PO (21:09)
[2018-10-01 21:31] LABS: Bedside Glucose 166 mg/dL (70-110)
[2018-10-01 21:35] LABS: Bedside Glucose 207 mg/dL (70-110)
[2018-10-02] VITALS (9 sets, daily range): BP systolic 137–153; BP diastolic 71–90; PULSE 74–88; RESP 14–18; TEMP 36.4–37.2; O2SAT 94–96; BMI 40.1
[2018-10-02] MEDS: HYDROcodone Bitartrate/Apap 5/325 Tablet PO (00:51)
--- NOTE | 2018-10-02 00:58 | NURSING ---
PT NPO AT THIS TIME
[2018-10-02] MEDS: Morphine 2 MG/ML Syringe IV ×2 (03:19→09:41)
[2018-10-02] MEDS: 0.9% NaCl Peripheral Flush Adult/Peds IV (03:21)
[2018-10-02 06:41] LABS: Bedside Glucose 184 mg/dL (70-110)
[2018-10-02] MEDS: Famotidine 20 MG Tablet PO (07:59)
[2018-10-02] MEDS: Lisinopril 10 MG Tablet PO (07:59)
--- NOTE | 2018-10-02 09:33 | NURSING ---
spoke with Umm from Dr. Cruz office, planning for surgery sometime today, she planned to call the OR schedule and said she would update me.
--- NOTE | 2018-10-02 10:16 | EKG12_ITS ---
Test Reason : PRE OP Blood Pressure : / mmHG Vent. Rate : 078 BPM Atrial Rate : 078 BPM P-R Int : 202 ms QRS Dur : 104 ms QT Int : 392 ms P-R-T Axes : 044 032 077 degrees QTc Int : 446 ms Normal sinus rhythm Normal ECG When compared with ECG of 16-AUG-2016 09:48, No significant change was found Confirmed by JORGE ALBERTO GRAYSON, DEEJAY ([id number]), graphics editor WALLY ORONA ([id number]) on 10/04/2018 1:59:38 PM Referred By: ECHO Confirmed By:DEEJAY AZUL MD
[2018-10-02 10:26] LABS: Bedside Glucose 148 mg/dL (70-110)
--- NOTE | 2018-10-02 11:15 | DCINST_ITS ---
- Discharge Diagnoses Current Active Problems: Current Active and Chronic Problems Intractable back pain (Acute) Radiculopathy (Acute) Morbid obesity (Chronic) Diabetes mellitus, type II (Chronic) HTN (hypertension) (Chronic) HLD (hyperlipidemia) (Chronic) CKD (chronic kidney disease) stage 3, GFR 30-59 ml/min (Chronic) You will use the following diet at home:: Calorie/Carbohydrate Controlled (specify 1200, 1400, etc) - 1800 ADA diet Your food should be the consistency of: Regular Discharge Activity: May Not Drive - for 1-2 weeks until he sees PCP for back pain, right hip pain, May not drive while taking narcotic pain medications. Call your doctor if you observe: Fever of 101 or Higher, Inability to have a bowel movement, Shortness of breath, Dizziness, Fainting spells, Swelling in the ankles, Calf discomfort Allergies/Adverse Reactions: Allergies amoxicillin Allergy (Verified 09/29/18 19:11) Unknown simvastatin [From Zocor] Allergy (Verified 09/29/18 19:11) Other MUSCLE CRAMPING Medications to take at Discharge Gabapentin [Neurontin] 900 mg PO TID 08/16/16 Insulin Glargine,Hum.rec.anlog [Lantus] 40 unit SQ QHS 08/16/16 Metformin HCl [Glucophage] 500 mg PO BIDCM 08/16/16 Pravastatin [Pravachol] 20 mg PO QHS 08/16/16 Aspirin [Aspirin EC] 81 mg PO DAILY 07/03/18 Multivitamin with Minerals [Multiple Vitamin] 1 each PO DAILY 07/03/18 Pioglitazone [Actos] 45 mg PO DAILY 09/29/18 Dulaglutide [Trulicity] 1.5 mg SQ QWEEK 10/01/18 Lisinopril [Zestril] 10 mg PO DAILY #30 tablet 10/02/18 traMADol [Ultram] 50 mg PO Q6H PRN PRN #14 tablet 10/02/18 The following prescriptions were given: traMADol [Ultram] 50 mg PO Q6H PRN PRN #14 tablet PRN Reason: Severe Pain (6-03/29) Lisinopril [Zestril] 10 mg PO DAILY #30 tablet Primary Care Physician: Rafael Velasquez III, MD [Primary Care Provider] - Please follow up with your Primary Care Physician in: in 1-2 week Test Results: Test results from this visit will be discussed in further detail at your follow- up appointment, if applicable. Please Follow Up With: Renay Elliott MD When: as scheduled
--- NOTE | 2018-10-02 11:16 | DS.PCM_ITS ---
Discharge Date and Diagnosis - Problem List Patient Problems: Active and Suspected Problems Intractable back pain (Acute) Radiculopathy (Acute) Date of Admission: 09/29/18 Date of Discharge: 10/02/18 - Primary Discharge Diagnosis Active and Suspected Problems Intractable back pain (Acute) Radiculopathy (Acute) - Secondary Discharge Diagnosis Chronic Problems Morbid obesity (Chronic) Diabetes mellitus, type II (Chronic) HTN (hypertension) (Chronic) HLD (hyperlipidemia) (Chronic) CKD (chronic kidney disease) stage 3, GFR 30-59 ml/min (Chronic) Hospital Course and Treatment Imaging Results: 10/02/18 12:00 OR-Steroi/Epid Inj/Lum Sac/1st [RAD] Urgent Spine 1 View Any Level [RAD] Urgent Summary of Care Provided: The patient is a 68 year old M with history of 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 Patient was not able to stand up or walk. Lumbar Spine MRI was done which showed multilevel degenerative disc disease and moderate central canal stenosis L1-2, and mild to moderate narrowing of neural foramina. Pain management Dr. Elliott was consulted. Pain was controlled with morphine, [place] and Neurontin. Patient was also on Decadron. Patient had lumbar spinal steroid injection today. Pain is much better. Patient has follow-up with Dr. Robbins in [address] Elliott in 1 week. Follow with PCP in 2 weeks. Prescription for tramadol 50 mg every 6 hourly as needed total of 14 tablets was sent to pharmacy. Discharge medication reconciliation done. Discharge follow-up instructions completed. Diagnosis: Acute lumbar spinal sciatica pain with lumbar radiculopathy His other comorbidities includes: Diabetes mellitus type 2: Accu-Chek before meals and at bedtime. Blood glucose was controlled. The patient is on Lantus, Actos and Metformin. CKD stage III: Kidney function is stable. Hypertension and dyslipidemia and morbid obesity: Blood pressure is controlled. Weight reduction counseling done. Discharge medication reconciliation done. Discharge follow-up instructions completed. Discharge process discussed with the patient and all questions were answered to patient's satisfaction.. Total time spent, exact 35 minutes on discharge meds reconciliation, examination, review of imaging and blood test and discussion with the patient on follow-up instructions. Clinical Impression(s) from Imaging Studies Hip/Pelvis X-Ray 09/29/18 19:41 IMPRESSION: No acute fracture or dislocation. Degenerative changes of the hip. Lumbar Spine X-Ray 09/29/18 19:41 IMPRESSION: No acute abnormality. Degenerative changes. Venous Duplex 09/29/18 22:13 IMPRESSION: Normal venous Doppler ultrasound of the lower extremity. Lumbar Spine MRI 09/30/18 10:59 IMPRESSION: Multilevel degenerative disc disease and spinal stenosis as above. Patient Problems: Active and Suspected Problems Intractable back pain (Acute) Radiculopathy (Acute) Subjective: Patient complain of pain from right hip with radiation along the back of thigh, knee up to ankle. Patient also has lumbar back pain but currently is more concerned of right hip pain. Patient has been in pain since past Tuesday about a week and then followed with chiropractor who referred to ER. Patient had lumbar epidural steroid injection. - Physical Exam General: Alert, Oriented x3, Cooperative HEENT: Atraumatic, PERRLA, EOMI, Normocephalic Neck: Supple, No JVD, Negative Carotid Bruits Lungs: Clear to auscultation, No rhonchi, No wheeze, No rales, Diminished - Air entry is diminished in bilateral lung bases. Cardiovascular: Regular rate, Regular Rhythm, Normal S1, Normal S2, No murmurs Abdomen: Bowel Sounds Present, Soft, Non Tender, Non-Distended Extremities: No edema, Capillary Refill Less than 3 Seconds Skin: No rashes, No breakdown Musculoskeletal: Arthritic Changes, Muscle Wasting, Tenderness - Lumbar arthritis Mild spasm of right hip joint, lumbar spine. Lymphatic: No Cervical, Supraclavicular, or Inguinal Adenopathy Neurological: Cranial nerves II-XII grossly intact, Deep Tendon Reflexes 2+/4 and Symmetrical, Neuro grossly intact, - Psych/Mental Status: Normal Affect, Appropriate Vital Signs Temp Pulse Resp BP Pulse Ox 98.9 F 79 14 153/71 H 96 10/02/18 10:06 10/02/18 10:06 10/02/18 10:06 10/02/18 10:06 10/02/18 10:06 Oxygen Delivery Method Room Air Weight: 263 lb 14.293 oz Body Mass Index (BMI) 40.1 Intake and Output for Last 24 Hours 09/30/18 10/01/18 10/02/18 23:59 23:59 23:59 Intake Total 990 / 990 770 / 770 340 / 340 Output Total 550 / 550 200 / 200 Balance 440 / 440 770 / 770 140 / 140 Laboratory Tests Past 24 Hrs 09/30/18 06:20 Hemoglobin A1c Pending POC Glucose 10/02/18 10/02/18 10/01/18 10:21 06:30 20:59 POC Glucose 148 H 184 H 207 H 10/01/18 10/01/18 10/01/18 15:20 11:05 06:37 POC Glucose 236 H 206 H 166 H Discharge Activity: May Not Drive - for 1-2 weeks until he sees PCP for back pain, right hip pain, May not drive while taking narcotic pain medications. Call your doctor if you observe: Fever of 101 or Higher, Inability to have a bowel movement, Shortness of breath, Dizziness, Fainting spells, Swelling in the ankles, Calf discomfort Home Medications: Medications to take at Discharge Gabapentin [Neurontin] 900 mg PO TID 08/16/16 Insulin Glargine,Hum.rec.anlog [Lantus] 40 unit SQ QHS 08/16/16 Metformin HCl [Glucophage] 500 mg PO BIDCM 08/16/16 Pravastatin [Pravachol] 20 mg PO QHS 08/16/16 Aspirin [Aspirin EC] 81 mg PO DAILY 07/03/18 Multivitamin with Minerals [Multiple Vitamin] 1 each PO DAILY 07/03/18 Pioglitazone [Actos] 45 mg PO DAILY 09/29/18 Dulaglutide [Trulicity] 1.5 mg SQ QWEEK 10/01/18 Lisinopril [Zestril] 10 mg PO DAILY #30 tablet 10/02/18 traMADol [Ultram] 50 mg PO Q6H PRN PRN #14 tablet 10/02/18 Following Prescrptions Were Given to Patient: traMADol [Ultram] 50 mg PO Q6H PRN PRN #14 tablet PRN Reason: Severe Pain (6-03/29) Lisinopril [Zestril] 10 mg PO DAILY #30 tablet Primary Care Physician: Rafael Velasquez III, MD [Primary Care Provider] - Please follow up with your Primary Care Physician in: in 1-2 week Please Follow Up With: Renay Elliott MD When: as scheduled Medical Necessity - Tobacco Use Smoking Status: Never smoker Tobacco Use: Non-smoker Meaningful Use Info Meaningful Use Diagnoses (Choose all that apply): None applicable Code Visit Inpatient E&M: 31755 Disch Hosp
--- NOTE | 2018-10-02 11:51 | CASEMGMT ---
RN CM attempted to complete Face to Face assessment at this time. Patient is out of room at procedure. RN CM will attempt assessment at later time.
[2018-10-02 11:56] LABS: Hemoglobin A1c 6.6 % (4.2-6.3)
--- NOTE | 2018-10-02 12:00 | RAD_ITS ---
STUDY: EPIDURAL BLOCK. REASON FOR EXAM: Male, 68 years old. Back pain. FLUOROSCOPY TIME (if supplied): (0:08) minutes/seconds TECHNIQUE: Intraoperative imaging provided for L3-L4 epidural block. COMPARISON: None. RAD/Spine 1 View Any Level IMPRESSION: Intraoperative imaging provided for L3-L4 epidural block. Electronically Signed: Shadi Perry, at 11:22 EDT , Service support ,
--- NOTE | 2018-10-02 12:00 | RAD_ITS ---
STUDY: EPIDURAL BLOCK. REASON FOR EXAM: Male, 68 years old. Back pain. FLUOROSCOPY TIME (if supplied): (0:08) minutes/seconds TECHNIQUE: Intraoperative imaging provided for L3-L4 epidural block. COMPARISON: None. RAD/OR-Steroi/Epid Inj/Lum Sac/1st IMPRESSION: Intraoperative imaging provided for L3-L4 epidural block. Electronically Signed: Shadi Perry, at 11:22 EDT , Service support ,
[2018-10-02] MEDS: Triamcinolone Acetonide 40 MG/ML Vial (12:26)
--- NOTE | 2018-10-02 13:50 | CASEMGMT ---
NANCY DESOUZA Face to Face with patient for initial transition planning/care coordination assessment. NANCY DESOUZA introduced self and role at [facility]. Patient lying in bed, alert and oriented, friend at bedside. Patient willing to participate in assessment and is able to answer all questions appropriately. Care providers, pharmacy, and demographics verified. Patient wishes to discharge home, denies need for home health at this time. Patient states he has no further needs or concerns at this time. CM to follow for discharge planning needs that may arise. PCP: Jeremie Specialists: none Preferred Pharmacy: [facility] Insurance: Roman MORIN Prescription Benefit: Yes Living Will/HPOA: yes, daughter Claudai Fernandez LNOK: daughter, friend Living Arrangements: Patient lives with his friend in a home, patient is independent at home. Transportation: self/friend DME/HHC: Patient states he has a cane and walker at home. PT/OT recommending further therapy, patient agreeable to outpatient therapy, NANCY DESOUZA obtained script from hospitalist and provided to patient to take to outpatient therapy of choice. Disposition Plan: Patient to discharge home with outpatient therapy, family support, and follow-up plans in place. Leticia BOYER, RN, CM
[2018-10-02] MEDS: Gabapentin 300 MG Capsule 900 MG PO (14:02)
--- NOTE | 2018-10-02 16:54 | CHAPLAIN ---
Type of Pastoral Visit _x__ Initial Visit ___ Follow-up Visit ___ On-call Visit ___ General Patient Visit ___ Spiritual Assessment ___ Family Conference ___ Bereavement ___ Rapid Response ___ Code Blue ___ Other (describe below) Pastoral Care Referral From _x__ Patient ___ Family ___ Nurse ___ Physician ___ Certified Medical Aide ___ Research And Development Director ___ Other (describe below) Sacrament/Intervention _x__ Active listening ___ Anointing ___ Zoroastrianism ___ Bereavement ___ Communion ___ Rupali exploration ___ ___ Life review _x__ Prayer ___ Reconciliation ___ Sacrament of Sick ___ Supportive presence ___ Wedding ___ Other (describe below) Pastoral Comments
== END 2018-10-02 17:05 | disposition home or self-care (01) | DRG 552 ==
LOC: ED 19:36 → MS3 22:19
PROVIDERS: Anesthesiology; Anesthesiology Pain Medicine; Internal Medicine; Admitting Provider Family Medicine; Emergency Provider Emergency Medicine; Family Provider Family Medicine; PCP Family Medicine; Visit Provider Internal Medicine
PROC: 3E0S3BZ Introduction of Anesthetic Agent into Epidural Space, Percutaneous Approach (ICD-10-PCS; CPT 62322; principal; 2018-10-02 11:55)
DX: M51.16 Intervertebral disc disorders with radiculopathy, lumbar region (principal); Z68.41 Body mass index [BMI] 40.0-44.9, adult; M48.061 Spinal stenosis, lumbar region without neurogenic claudication; E66.01 Morbid (severe) obesity due to excess calories; E78.5 Hyperlipidemia, unspecified; I12.9 Hypertensive chronic kidney disease with stage 1 through stage 4 chronic kidney disease, or unspecified chronic kidney disease; E11.22 Type 2 diabetes mellitus with diabetic chronic kidney disease; N18.3 Chronic kidney disease, stage 3 (moderate); Z79.4 Long term (current) use of insulin
CPT/HCPCS: 36415; 64483; 72020; 72100; 72148; 73502; 80048; 82962; 83036; 83735; 85025; 93005; 93971; 97110; 97162; 97165; 97530; 97802; 99285; A4216; J2405

== ENCOUNTER 2024-02-08 08:00 | Outpatient (RCR) | payer MEDICARE, OTHER, SELFPAY | END 2024-02-08 19:00 | disposition home or self-care (01) | LOC: PT 08:00 | PROVIDERS: PCP Internal Medicine; Visit Provider Nurse Practitioner | DX: M51.26 Other intervertebral disc displacement, lumbar region (principal) | CPT/HCPCS: 97110; 97162; 97530 ==

== ENCOUNTER 2024-08-31 08:00 | Outpatient (RCR) | payer MEDICARE, OTHER, SELFPAY ==
--- NOTE | 2024-07-06 15:03 | HP.PTEVAL_ITS ---
Patient's Visit Information Visit Information Visit Information: LAURA HUERTA is a 74 year old M referred to Physical Therapy by Dr. Kevin Resendiz MD with a diagnosis of BURSITIS LEFT HIP. Date of Evaluation: 07/06/24 Physical Therapist: German Ruiz, PT, Cert MDT, OCS Visit Plan Frequency: 2x /Week Duration: 4 Weeks Plan: Patient had back surgery November 2023 and h/o Left TYREE many years ago PT INTERVENTIONS MODALITIES FOR PAIN LATERAL HIP ,MANUAL THERAPY IT BAND , STRENGTHENING EX'S HIP LEFT, AND CORE STRENGTHENING Subjective Subjective: This 74 y/o male presents to physical therapy left hip bursitis . Patient has h/o lumbar surgery revision bilateral laminectomies L1,L2,L3,L4,L5 ,S1 and partial facetectomy and foraminotomies ,L5-S1 decompression November 24 . Patient had PT in Jan 2024 eventually was d/c to HEP. Patient continues to have pain left hip .Seen DR recommend PT. If does not get better try cortisone. Patient located lateral hip left. Aggravating walking 1/4 mile /standing,stairs .Alleviating factors sitting. Denies paresthesia/tingling . Coughing/sneezing -. Bowel/bladder -. Patient sleeps on back. Patient condition affects QOL and function/walking. Patient goals to walk and less pain. Patient also has h/o left TYREE SOCIAL: Lives with girlfriend VOCATION: RETIRED Pain Left Hip: Pain Intensity (Out of 10): 7 Pain Intensity Range: 10 Comment: WALKING Objective Objective: POSTURE: mild forward posture PALATION: tender lateral hip glut medius ,I T BAND ,greater trochanter NEURO: denies paresthesia /tingling GAIT: ambulate with antalgic gait with lateral sway left > right PROM: HIP 90 degrees ,hip abduction 30 degrees pain , MMT: (peak force )quads 20.1,hamstrings 18.9 , hip flexion 23.9 ,hip abd 0 left LUMBAR ROM: flexion mod loss ,extension sever loss ,side glides mod loss pain left Special Tests L/S Slump test left side: Negative L/S Slump test right side: Negative L/S Left Straight Leg Raise: Negative L/S Right Straight Leg Raise: Negative Balance/Special Test Scores Lower Extremity Functional Score: 14 Goals Goal 1:: Patient to be I with HEP hip Goal Time Frame: 4-6 Weeks Goal 2:: Patient to demonstrate 50% improvement with less hip pain with gait Goal Time Frame: 4-6 Weeks Goal 3:: Patient to improve peak force hip by 5-10 # to improve gait Goal Time Frame: 4-6 Weeks Goal 4:: Patient to improve LFES score by 5-10 points to improve function. Goal Time Frame: 4-6 Weeks Goal 5:: Patient to ambulate with improve gait pattern 80% Goal Time Frame: 4-6 Weeks Rehabilitation Potential Physical Therapy Diagnosis: Patient has h/o lumbar surgery revision bilateral laminectomies L1,L2,L3,L4,L5 ,S1 and partial facetectomy and foraminotomies ,L5-S1 decompression November 24 . Patient conts to have pain lateral hip affects walking/standing ,tender Glut medius IT pain with weakness thus benefit from skilled PT Rehabilitation Potential: Good Anticipated Interventions Patient/Client Instruction: Educate patient on: Condition and Plan of Care For the Purpose of:: To decrease pain, To increase ROM, To improve muscle performance and motor function, To improve ability to perform ADL's, To increase tolerance to activity/condition/position, To improve ability of physical actions for home/community/work/leisure, To improve gait and locomotor functions, To improve health of tissue, To decrease soft tissue restriction, To increase flexibility/ROM and To improve endurance Therapeutic Exercise to Include: Strength training, Endurance training, Balance training, Postural training, Flexibilty training and Dynamic Lumbar Stabilization Comment: QUADS/HAMS/HIP For the Purpose of:: To decrease pain, To increase ROM, To improve nutrient delivery to tissue, To increase oxygenation perfusion, To improve ability to perform ADL's, To improve ability of physical actions for home/community/work/leisure, To improve health of tissue, To decrease soft tissue restriction, To increase flexibility/ROM, To improve endurance and To improve balance Text: Thank you for the opportunity to evaluate your patient. For Medicare and Medicare HMO plans, please review the plan of care and approve it. It will need to be FAXED BACK to us at [phone] for Medicare purposes. For Medicare only, by signing this I certify the plan of care. Please let me know if there are questions or concerns regarding this plan of care. Physician Signature: Date:
--- NOTE | 2024-08-03 08:53 | HP.PTREVAL_ITS ---
Re-Evaluation Intro: Dr. Kevin Resendiz MD, It has been my pleasure to treat LAURA HUERTA over the last 8 visits for BURSITIS LEFT HIP. Please see the progress note below for an update on the physical therapy plan of care! Subjective Subjective: I had injections in hip helped 2 days Objective Objective/Function: *Patient to benefit from skilled PT to decrease pain,patient has shown some gains with increasing strength * Objective: POSTURE: mild forward posture PALATION: tender lateral hip glut medius ,I T BAND ,greater trochanter NEURO: denies paresthesia /tingling GAIT: ambulate with antalgic gait with lateral sway left > right PROM: HIP 90 degrees ,hip abduction 30 degrees pain , MMT: (peak force )quads 253,hamstrings 23.9 , hip flexion 28.9 ,hip abd 3.0 left LUMBAR ROM: flexion mod loss ,extension mod loss ,side glides mod loss pain left Plan Plan Plan: Patient had back surgery November 2023 and h/o Left TYREE many years ago Try estim to hip post ex's PT INTERVENTIONS MODALITIES FOR PAIN LATERAL HIP, MANUAL THERAPY IT BAND, STRENGTHENING EX'S HIP LEFT, AND CORE STRENGTHENING Balance/Gait/Functional tests Balance/Special Test Scores Lower Extremity Functional Score: 15 Goals Goals Goal 1:: Patient to be I with HEP hip Goal Time Frame: 4-6 Weeks Goal Progress: Goal Met Goal 2:: Patient to demonstrate 50% improvement with less hip pain with gait Goal Time Frame: 4-6 Weeks Goal Progress: Goal Met Goal 3:: Patient to improve peak force hip by 5-10 # to improve gait Goal Time Frame: 4-6 Weeks Goal Progress: Goal Met Goal 4:: Patient to improve LFES score by 5-10 points to improve function. Goal Time Frame: 4-6 Weeks Goal Progress: Goal Met Goal 5:: Patient to ambulate with improve gait pattern 80% Goal Time Frame: 4-6 Weeks Goal Progress: Goal Met Anticipated Interventions Anticipated Interventions Patient/Client Instruction: Educate patient on: Condition and Plan of Care For the Purpose of:: To decrease pain, To increase ROM, To improve muscle performance and motor function, To improve ability to perform ADL's, To increase tolerance to activity/condition/position, To improve ability of physical actions for home/community/work/leisure, To improve gait and locomotor functions, To improve health of tissue, To decrease soft tissue restriction, To increase flexibility/ROM and To improve endurance Therapeutic Exercise to Include: Strength training, Endurance training, Balance training, Postural training, Flexibilty training and Dynamic Lumbar Stabilization Comment: QUADS/HAMS/HIP For the Purpose of:: To decrease pain, To increase ROM, To improve nutrient delivery to tissue, To increase oxygenation perfusion, To improve ability to perform ADL's, To improve ability of physical actions for home/community/work/leisure, To improve health of tissue, To decrease soft tissue restriction, To increase flexibility/ROM, To improve endurance and To improve balance Re-Evaluation Ending Re-evaluation ending: Please do not hesitate to contact me at [phone] by phone or Fax: if you have questions or concerns regarding this new plan of care! Sincerely, German Ruiz, PT, Cert MDT, OCS
--- NOTE | 2024-08-31 08:24 | HP.PTDCSUM ---
Discharge Summary D/C summary: It has been my pleasure to treat LAURA HUERTA referred by Dr. Kevin Resendiz MD, with the diagnosis of BURSITIS LEFT HIP for a total of 17 visit(s). Discharge Date: Please see the following information for a summary of their discharge status. Subjective Subjective: Just a little better ,has TENS Pain Left Hip: Pain Intensity (Out of 10): 6 Overall Improvement % Improvement: 20 Objective Objective/Function: POSTURE: mild forward posture PALATION: tender lateral hip glut medius ,I T BAND ,greater trochanter NEURO: denies paresthesia /tingling GAIT: ambulate with antalgic gait with lateral sway left > right PROM: HIP 90 degrees ,hip abduction 30 degrees pain , MMT: (peak force )quads 253,hamstrings 23.9 , hip flexion 28.9 ,hip abd 3.0 left LUMBAR ROM: flexion mod loss ,extension mod loss pain left ,side glides mod loss pain left Discussed with patient about returning to MD and discuss further option ,MRI and/or pain management Goals Goal 1:: Patient to be I with HEP hip Goal Progress: Progressing Goal 2:: Patient to demonstrate 50% improvement with less hip pain with gait Goal Progress: Not Progressing Goal 3:: Patient to improve peak force hip by 5-10 # to improve gait Goal Progress: Not Progressing Goal 4:: Patient to improve LFES score by 5-10 points to improve function. Goal Progress: Not Progressing Goal 5:: Patient to ambulate with improve gait pattern 80% Goal Progress: Not Progressing Plan Plan: D/C PAIN MANAGEMENT OR MRI ? D/C Information d/c sentence: If there are questions or concerns regarding this patient's physical therapy, please feel free to call me at [phone]. Thank you for the referral of this patient. Sincerely, German Ruiz, PT, Cert MDT, OCS Balance/Gait/Functional tests Balance/Special Test Scores Lower Extremity Functional Score: 15 Improvement % Improvement: 20
== END 2024-08-31 19:00 | disposition home or self-care (01) ==
LOC: PT 08:00
PROVIDERS: PCP Internal Medicine; Referring Provider Orthopaedic Surgery Orthopaedic Surgery of the Spine; Visit Provider Orthopaedic Surgery Orthopaedic Surgery of the Spine
DX: M70.72 Other bursitis of hip, left hip (principal)
CPT/HCPCS: 97035; 97110; 97116; 97140; 97162; 97530

== ENCOUNTER 2025-05-07 12:26 | Inpatient (IN) | payer MEDICARE, OTHER, SELFPAY ==
[2025-05-07 12:30] VITALS: BP 132/71; PULSE 94; RESP 18; TEMP 37.1; O2SAT 94
[2025-05-07 12:47] VITALS: BMI 36.0
--- NOTE | 2025-05-07 13:19 | PCM.HP.STD ---
Documented by User: TETE Velasquez 05/07/25 14:30 HPI - General General Date of Admission: 05/07/25 Date of Service: 05/07/25 Chief Complaint: Status post laminectomy with fusion L5-S1. HPI Narrative LAURA HUERTA, is a 75 M who presents inpatient rehab following lumbar 5 through sacral 1 revision decompression, lumbar 5 through sacral 1 transforaminal lumbar body fusion and posterior lateral instrumented fusion, posterior approach on 05/03/2025. The patient then went home after discharge and, reportedly, his girlfriend was unable to care for him at home thus arrangements were made for him to come to inpatient rehab. I did review laboratory values from 04/09/2025 showing a hemoglobin of 12 and a hematocrit of 37, he does have a history of chronic kidney disease and at that time his BUN was 24, creatinine was 1.3 and GFR was 54. He does have a hemoglobin A1c of 6.8 on that date. At that time he also had an EKG that was completed preoperatively showing a right bundle branch block and sinus rhythm with a QRS greater than 120mS. Last lab draw was done on 05/06/2025 in which his BUN was 21, creatinine was 1.44 and GFR was 50. He did have hypoglycemia at that time which was 56. 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 Trending overnight pulse ox ordered. Lumbar radiculopathy, lumbar spondylosis, cholecystectomy. Per documentation it is noted that he is a current marijuana user 1-2 times per month in which he has Gummies. On assessment Laura is alert and oriented x 3. He states that his only complaint is some low back pain which she rates at a 5/10. He states that he does have tingling in the tips of his fingers on bilateral hands but this is normal for him. Director Ambulatory strength are strong and equal bilaterally. He does have his brace in place thus I was unable to visualize his surgical incision. He states that he was told to only sit up in the chair for 1 hour at a time and then he needs to lay back in the bed. He did acknowledge having constipation and states that he had constipation during his hospitalization but then he had a major blowout a few days ago and has not gone since. Aggressive bowel management ordered. We have scheduled his Tylenol to assist with pain management and tramadol for breakthrough pain. I did note his vital signs to be stable. Afebrile, blood pressure 135/68. Pulse is 94 and oxygen saturations are 94% on room air. I did review the patient's medication list and orders have been placed. Labs have been ordered for the a.m. I did note him to have some edema, 2+ nonpitting bilateral lower extremities. He does state that he does get edema intermittently. He denies history of congestive heart failure but does have CKD III. I did encourage fluid intake. He denies chest pain, dizziness or shortness of breath. All questions were answered. [facility] Medical History Obesity (BMI 30-39.9) CKD (chronic kidney disease) stage 3, GFR 30-59 ml/min HLD (hyperlipidemia) HTN (hypertension) Diabetes mellitus, type II Home Medications ?Medication ?Instructions ?Recorded ?Last Taken ?Type aspirin 81 mg tablet,delayed 81 mg PO DAILY heart health 07/03/18 09/29/18 08:00 History release multivitamin with minerals 1 ea PO DAILY supplement 07/03/18 09/29/18 08:00 History (Multiple Vitamin-Minerals tablet) gabapentin 300 mg capsule 900 mg PO BID nerve pain 09/28/24 Unknown History (Neurontin) insulin glargine 100 unit/mL 80 unit subcut QHS diabetes 09/28/24 05/06/25 History subcutaneous solution (Lantus U-100 Insulin) lisinopril 5 mg tablet 5 mg PO DAILY blood pressure 09/28/24 05/07/25 History metformin 500 mg tablet 500 mg PO BID DM 09/28/24 05/07/25 History pravastatin 20 mg tablet 20 mg PO QHS Cholesterol 09/28/24 05/06/25 History acetaminophen 500 mg tablet 1,000 mg PO Q8H pain 05/07/25 05/07/25 History cholecalciferol (vitamin D3) 125 125 mcg PO DAILY supplement 05/07/25 05/07/25 History mcg (5,000 unit) capsule methocarbamol 500 mg tablet 500 mg PO BID muscle spams 05/07/25 05/07/25 History tramadol 50 mg tablet 50 mg PO Q4H PRN PRN pain 05/07/25 Unknown History Allergy/AdvReac Type Severity Reaction Status Date / Time amoxicillin Allergy Unknown Verified 02/15/25 08:05 simvastatin (From Zocor) Allergy Other Verified 02/15/25 08:05 Family History unable to obtain Surgical History History of kidney stones History of pilonidal cyst History of lumbosacral spine surgery Social History (Updated 05/07/25 @ 15:46 by Juliana Hughes) household members: significant other Smoking Status: Never smoker ROS Review of Systems ROS Unobtainable: Denies due to encephalopathy, due to endotracheal tube, due to mental condition or due to mental status Constitutional Constitutional: Reports systems reviewed and no addt'l complaints, except as documented Eyes Eyes: Reports systems reviewed and no addt'l complaints, except as documented ENT HEENT: Reports systems reviewed and no addt'l complaints, except as documented Cardiovascular Cardiovascular: Denies chest pain, dyspnea on exertion, lightheadedness, orthopnea, palpitations, paroxysmal nocturnal dyspnea or syncope Respiratory/Chest Respiratory/Chest: Denies cough, dyspnea, shortness of breath at rest, shortness of breath with exertion or wheezing Gastrointestinal Gastrointestinal: Reports constipation; Denies abdominal pain, diarrhea, dyspepsia, hematemesis, hematochezia, nausea or vomiting Genitourinary Genitourinary: Denies dysuria, hematuria, nocturia, urinary frequency, urinary hesitancy, urinary incontinence or urinary urgency Musculoskeletal Musculoskeletal: Reports back pain; Denies joint pain, joint swelling or neck pain Integumentary Integumentary: Reports systems reviewed and no addt'l complaints, except as documented and other Details: Surgical incision of the lumbar area. Unable to visualize at this time. Neurologic Neurologic: Denies confusion, disequilibrium, dizziness, focal weakness, headache(s), paresthesias, seizures or tremor(s) Psychiatric Psychiatric: Denies anxiety, depression, homicidal ideation or suicidal ideation Endocrine Endocrinology: Denies change in body appearance, polydipsia or polyuria Hematologic/Lymphatic Hematologic/Lymphatic: Denies easy bleeding, easy bruising or lymphadenopathy Allergic/Immunologic Allergic/Immunologic: Denies rhinitis, eczemia or asthma Vital Signs Vital Signs Vital Signs: 05/07/25 12:30 Temperature 98.7 F Temperature Source Temporal Pulse Rate 94 Respiratory Rate 18 Blood Pressure 132/71 H Blood Pressure Mean 91 Blood Pressure Source Monitor Blood Pressure Position Sitting Blood Pressure Location Right Arm Pulse Ox 94 Oxygen Delivery Method Room Air Physical Exam Const alert, oriented x3 and no apparent distress General Appearance: cooperative Orientation / Consciousness: awake, oriented to person, oriented to place and oriented to time Exam Limitations: no limitations Nutritional Appearance: obese HEENT normocephalic Eyes PERRL Neck full ROM Chest inspection of chest normal Resp normal respiratory effort Cardio regular rate, regular rhythm and peripheral pulses 2+ throughout GI normal to inspection, nondistended, normoactive bowel sounds Back/Spine Back/Spine Narrative: surgical incision to the mid lower lumbar Extremity Extremity Narrative: edema to bilateral lower extremities Skin Skin Narrative: surgical incision to lumbar lower lumbar. Neuro oriented x3 Sensorium / Orientation: awake, alert, oriented to person, oriented to place and oriented to time Psych mental status grossly normal Results Lab / Micro Data 05/08/25 07:24 05/08/25 07:24 Assessment & Plan Assessment/Plan (1) Status post laminectomy with spinal fusion: (2) Low back pain: QUALIFIERS: Back pain laterality: midline Chronicity: chronic Sciatica presence: unspecified whether sciatica present Qualified Code(s): M54.50 - Low back pain, unspecified; G89.29 - Other chronic pain (3) Lumbar stenosis with neurogenic claudication: (4) Diabetes mellitus, type II: QUALIFIERS: Diabetes mellitus complication status: with unspecified complications Diabetes mellitus penitentiary insulin use: with long term care administrator use Qualified Code(s): E11.8 - Type 2 diabetes mellitus with unspecified complications; Z79.4 - manager terminal (current) use of insulin (5) HTN (hypertension): QUALIFIERS: Hypertension type: essential hypertension Qualified Code(s): I10 - Essential (primary) hypertension (6) CKD (chronic kidney disease) stage 3, GFR 30-59 ml/min: QUALIFIERS: Chronic kidney disease stage 3 subtype: stage 3b (GFR 30-44) Qualified Code(s): N18.32 - Chronic kidney disease, stage 3b (7) Obesity (BMI 30-39.9): (8) Constipation: QUALIFIERS: Constipation type: drug induced constipation Qualified Code(s): K59.03 - Drug induced constipation (9) MINESH (obstructive sleep apnea): PLAN: Plan *Continue therapies: PT/OT evaluation and treatment *Continue to wear brace for spinal precautions while ambulating *Incentive spirometry 10 times every hour while awake *Hypoglycemic protocol *Aggressive bowel regiment *Tylenol 1000 mg p.o. every 8 hours scheduled for pain control *Robaxin 500 mg p.o. twice daily for muscle spasms *Tramadol 50 mg p.o. every 4 hours as needed for breakthrough pain *Senokot 2 tablets p.o. twice daily to assist with constipation *Magnesium hydroxide 30 mL p.o. x 1 as needed as needed for constipation *Dulcolax 10 mg rectally x 1 as needed for constipation *Gabapentin 900 mg p.o. twice daily *Glargine 80 units SQ nightly *Sliding scale insulin subcu ACHS *Metformin 500 mg p.o. twice daily *Pravastatin 20 mg p.o. nightly *Morning labs: CBC/CMP/magnesium/phosphate in the a.m. *Vital signs every shift *Weekly weights *SCD's *Trending overnight pulse ox related to MINESH with no CPAP. *MARSHA buitrago Charges/Coding Visit Charges Inpatient E&M: 67162 Init Hosp L2 Documented by User: Dr. Lisa Dimas DO 05/09/25 12:09 HPI - General General Date of Admission: 05/07/25 [facility] Medical History Obesity (BMI 30-39.9) CKD (chronic kidney disease) stage 3, GFR 30-59 ml/min HLD (hyperlipidemia) HTN (hypertension) Diabetes mellitus, type II Home Medications ?Medication ?Instructions ?Recorded ?Last Taken ?Type aspirin 81 mg tablet,delayed 81 mg PO DAILY heart health 07/03/18 09/29/18 08:00 History release multivitamin with minerals 1 ea PO DAILY supplement 07/03/18 09/29/18 08:00 History (Multiple Vitamin-Minerals tablet) gabapentin 300 mg capsule 900 mg PO BID nerve pain 09/28/24 Unknown History (Neurontin) insulin glargine 100 unit/mL 80 unit subcut QHS diabetes 09/28/24 05/06/25 History subcutaneous solution (Lantus U-100 Insulin) lisinopril 5 mg tablet 5 mg PO DAILY blood pressure 09/28/24 05/07/25 History metformin 500 mg tablet 500 mg PO BID DM 09/28/24 05/07/25 History pravastatin 20 mg tablet 20 mg PO QHS Cholesterol 09/28/24 05/06/25 History acetaminophen 500 mg tablet 1,000 mg PO Q8H pain 05/07/25 05/07/25 History cholecalciferol (vitamin D3) 125 125 mcg PO DAILY supplement 05/07/25 05/07/25 History mcg (5,000 unit) capsule methocarbamol 500 mg tablet 500 mg PO BID muscle spams 05/07/25 05/07/25 History tramadol 50 mg tablet 50 mg PO Q4H PRN PRN pain 05/07/25 Unknown History Allergy/AdvReac Type Severity Reaction Status Date / Time amoxicillin Allergy Unknown Verified 02/15/25 08:05 simvastatin (From Zocor) Allergy Other Verified 02/15/25 08:05 Family History unable to obtain Surgical History History of kidney stones History of pilonidal cyst History of lumbosacral spine surgery Social History (Updated 05/07/25 @ 15:46 by Juliana Hughes) household members: significant other Smoking Status: Never smoker Results Lab / Micro Data 05/08/25 07:24 05/08/25 07:24 Assessment & Plan Assessment/Plan (1) Status post laminectomy with spinal fusion: (2) Low back pain: QUALIFIERS: Back pain laterality: midline Chronicity: chronic Sciatica presence: unspecified whether sciatica present Qualified Code(s): M54.50 - Low back pain, unspecified; G89.29 - Other chronic pain (3) Lumbar stenosis with neurogenic claudication: (4) Diabetes mellitus, type II: QUALIFIERS: Diabetes mellitus complication status: with unspecified complications Diabetes mellitus long term care administrator insulin use: with penitentiary use Qualified Code(s): E11.8 - Type 2 diabetes mellitus with unspecified complications; Z79.4 - snf (current) use of insulin (5) HTN (hypertension): QUALIFIERS: Hypertension type: essential hypertension Qualified Code(s): I10 - Essential (primary) hypertension (6) CKD (chronic kidney disease) stage 3, GFR 30-59 ml/min: QUALIFIERS: Chronic kidney disease stage 3 subtype: stage 3b (GFR 30-44) Qualified Code(s): N18.32 - Chronic kidney disease, stage 3b (7) Obesity (BMI 30-39.9): (8) Constipation: QUALIFIERS: Constipation type: drug induced constipation Qualified Code(s): K59.03 - Drug induced constipation (9) MINESH (obstructive sleep apnea):
[2025-05-07 13:22] VITALS: BMI 35.9
--- NOTE | 2025-05-07 14:30 | PCM.RU.PYE ---
Admission Information Primary Diagnosis:: S/P l5-S1 laminectomy with fusion Status Changes from Prescreening?: No changes Identified Actual Problem List:: Bleeding, Skin Intergrity, Pain, ALteration in Cmfrt, Bowel, Constipation, Alteration in Sleep, Mobility Impaired, Know.Dfct/Disease Process, Diabetes, Hyperglycemia, BP, Hypertension and Alteration-Leisure Activ. Potential Problem List:: DVT, Bleeding, Infection, UTI, Aspiration, Falls, Skin Integrity and Depression Risk of Complications DVT: MARSHA Hose and Sequential Compression Device Bleeding: Monitor Lab Values and Wound, if applicable, to be assessed every shift. Infection: Clinical Staff to Monitor for S/S of infection: Urinary Tract Infection: Monitor for frequency, burning, discomfort, or incontinence. Aspiration: Clinical staff will monitor for coughing, drooling, congestion. Falls: Patient will be evaluated for Fall Precautions and Patient will be placed on Fall Precautions as indicated per protocol. Skin Breakdown: Nursing will assess skin daily using assessment tool. Pain: Clinical staff will assess patient's pain level per protocol. and Medications will be given, if needed, and the pain level reassessed. Plan of Care Patient requires physician specializing in physical medicine and rehab oversight to provide close medical supervision of rehab issues including: Pain Management, Sleep Problems, Bowel and Bladder, Medical and co-morbidity Management, DVT prophylaxis, Rehabilitation Leadership and Coordination of treatment team Patient needs Physical Therapy: For a minimum of 1 hour and At least 5 out of 7 days Patient needs Physical Therapy to improve:: Mobility, Strengthening, Transfers, Stretching, ROM, Endurance, Stairs, Gait and Balance Patient needs Occupational Therapy: For a minimum of 1 hour and At least 5 out of 7 days Patient needs Occupational Therapy to improve ADL's incl.: Eating, Grooming, Bathing, Dressing, Toileting, Toilet transfers, Community Reintegration, Higher functioning activities, Household tasks, Adaptive Equipment, Splinting and Other activities as determined Patient requires speech therapy: For a minimum of 1 hour and At least 5 out of 7 days Patient requires 24/7 Rehabilitation Nursing for: Pain Issues, Identifying and preventing risk factors, Monitoring and reporting current medical conditions, Assisting with ambulation, transfer, and all ADL's, Teaching patients about disease process and medications, Family teaching, Providing safe environment, Bowel and Bladder Issues, Skin integrity and Medication Management Patient needs Manufacturing Engineering Manager/ Case Management for: Discharge Planning, Arranging Home Equipment or Services and Family Interventions Patient needs Dietary and Nutrition Services for: Adequate Nutrition, Nutritional Supplements and Nutritional Education Goals Goals Patient will remain: free from falls and or injury at time of discharge. Patient will perform eating at: Standby Assist. Patient will perform bed mobility at: Standby Assist. Patient will complete transfers from bed to chair at: MOD I level of assist. Patient will ambulate: 100 feet, with MOD I assist and with LRD Patient will complete upper body dressing at: MOD I level of assist. Patient will complete lower body dressing at: MOD I level of assist. Patient will complete toilet transfer at: MOD I level of assist. Patient will complete toileting at: MOD I level of assist. Patient will perform bathing at: MOD I level of assist. Patient will perform Tub/Shower transfer at: MOD I level of assist. Patient will complete grooming at: MOD I level of assist. Patient will complete home management skills at: MOD I level of assist. Patient will achieve: 12 stairs and at MOD I assist Patient will have pain level of: of 3 or less Patient's skin will: remain intact and free from infection. Patient will receive: adequate nutrition. Discharge Planning Pt Prognosis for Sig. Practical Improv. w/in Reasonable Time: Good Estimated Length of stay (days): 14 Anticipated D/C Destination: Home Was Preadmission Assessment Accurate?: Yes
[2025-05-07 15:33] VITALS: O2SAT 95
[2025-05-07 18:00] VITALS: BP 153/73; PULSE 86; RESP 17; TEMP 36.7; O2SAT 97
[2025-05-07] MEDS: Senna/Docusate Sodium 1 Tablet 2 TABLET PO (20:53)
[2025-05-07 21:00] VITALS: O2SAT 93
[2025-05-07] MEDS: Insulin Glargine-YFGN 100 UNIT/ML Pen 80 UNIT SC (21:02)
[2025-05-07 21:24] VITALS: PULSE 86; O2SAT 93
[2025-05-08 05:47] VITALS: BP 146/71; PULSE 88; RESP 16; TEMP 36.6; O2SAT 97
[2025-05-08 07:32] LABS: Hematocrit 26.9 % (40-54); Hemoglobin 9.2 g/dL (13.0-16.5); Immature Granulocytes Count 0.020 X10^3/uL (0.0-0.0); Mean Corp Hgb Conc 34.2 g/dL (32-36); Mean Corpuscular Volume 93.4 fL (80-94); Mean Platelet Vol. 8.8 fl (6.2-12.0); NRBC Flagged by Analyzer 0 % (0-5); Platelet Count 184 K/mm3 (150-450); RBC Distribution Width CV 12.8 % (11.6-14.6); RBC Distribution Width SD 44.1 fl (35.1-43.9); Red Blood Count 2.88 M/mm3 (4.6-6.2); White Blood Count 6.0 K/mm3 (4.4-11.0)
[2025-05-08 08:19] LABS: AST(SGOT) 24 U/L (<=37); Alanine Aminotransfer ALT/SGPT 13 U/L (<=46); Albumin, Serum 3.3 g/dL (3.4-4.8); Alkaline Phosphatase 49 U/L (40-129); Anion Gap 8 (5-15); BUN 18 mg/dL (4-19); BUN/Creat Ratio 15.1 RATIO (10-20); Calcium,Total 8.6 mg/dL (7.6-11.0); Carbon Dioxide 27.1 mmol/L (21.0-32.0); Chloride 103 mmol/L (98-108); Estimated Creatinine Clearance 62.35 ml/min (50-250); Globulin 2.9 g/dL (2.2-4.2); Glucose 84 mg/dL (70-99); Magnesium 2.4 mg/dL (1.5-2.2); Potassium 3.7 mmol/L (3.3-5.1)
[2025-05-08] MEDS: Cholecalciferol (Vit D3) 125 MCG CAPSULE (5,000 UNITS) PO (08:23)
[2025-05-08] MEDS: Aspirin E.C. 81 MG Tablet PO (08:23)
[2025-05-08] MEDS: Senna/Docusate Sodium 1 Tablet 2 TABLET PO ×2 (08:23→21:28)
[2025-05-08 17:26] VITALS: BP 125/77; PULSE 87; RESP 16; TEMP 36.4; O2SAT 96
[2025-05-08] MEDS: Insulin Glargine-YFGN 100 UNIT/ML Pen 80 UNIT SC (21:29)
[2025-05-08 21:37] VITALS: O2SAT 94
[2025-05-09 06:00] VITALS: BP 136/71; PULSE 78; RESP 17; TEMP 36.2; O2SAT 94
[2025-05-09 07:22] VITALS: O2SAT 95
[2025-05-09] MEDS: Cholecalciferol (Vit D3) 125 MCG CAPSULE (5,000 UNITS) PO (08:06)
[2025-05-09] MEDS: Aspirin E.C. 81 MG Tablet PO (08:06)
[2025-05-09] MEDS: Senna/Docusate Sodium 1 Tablet 2 TABLET PO ×2 (08:07→21:09)
--- NOTE | 2025-05-09 11:07 | PN_ITS ---
Subjective Subjective Theo was seen on team rounds today. His significant other, Osiris, was present in the room. All questions were answered to their satisfaction. Osiris tells me that the last time Theo had surgery he would not move and was sitting or lying down most of the time. Afebrile VSS - Maintaining appropriate oxygen saturation on RA Oral intake - FOOD good FLUIDS fair Blood sugars are well-controlled with no hypoglycemia. Currently on glargine 80 units nightly and metformin 500 mg twice daily. He is also on sliding scale insulin and has had only 1 unit since admission to rehab. Hemoglobin A1c at the previous institution was good at 6.8. Discussed with nursing - no problems that need addressed Reviewed the THERAPY notes Medication list reviewed. Has only taken 2 doses of tramadol since admission to rehab 1 dose at at bedtime last night and 1 dose at 6 AM this morning. All lab from yesterday morning was personally reviewed. White blood cell count is normal at 6 and the hemoglobin is 9.2. Platelets are within normal limits. Sodium is 138 and the potassium is 3.7. The BUN is 18 with a creatinine of 1.18 (it was 1.3 at the previous institution) which is better than it has been in the past. The estimated creatinine clearance is 62.35 and the GFR is 64. LFTs were normal. Magnesium and phosphorus were unremarkable. Theo tells me he did not sleep well last night. He received a tramadol in the early a.m. and that was helpful and relieved his pain so he could sleep. He has been avoiding taking pain medication because he does not want to get constipated. He denies lightheadedness, chest pain, shortness of breath, nausea/vomiting/abdominal pain, constipation/diarrhea, dysuria and calf tenderness. Denies numbness in his legs. He is complaining of some heel pain, left greater than right. Objective Data Objective Data Vital Signs: Vital Signs Temp Pulse Resp BP Pulse Ox O2 Del Method O2 Flow Rate 97.2 F L 78 17 136/71 H 95 Room Air 0 05/09/25 06:00 05/09/25 06:00 05/09/25 06:00 05/09/25 06:00 05/09/25 07:22 05/09/25 07:22 05/07/25 21:24 FiO2 21 05/07/25 21:24 Oxygen Flow Rate (L/min) 0 Oxygen Delivery Method Room Air Weight: 237 lb 3.196 oz Body Mass Index (BMI) 35.9 Intake & Output: Intake and Output for Last 24 Hours 05/07/25 05/08/25 05/09/25 23:59 23:59 23:59 Intake Total 1160 / 1160 1330 / 1330 240 / 240 Output Total 250 / 250 540 / 540 Balance 910 / 910 790 / 790 240 / 240 Lab / Micro Data 05/08/25 07:24 05/08/25 07:24 Labs: Laboratory Results - last 24 hr 05/08/25 11:11: POC Glucose 100 05/08/25 16:05: POC Glucose 94 05/08/25 21:18: POC Glucose 159 H 05/09/25 05:56: POC Glucose 83 Physical Exam Const alert and oriented x3 Constitutional Narrative: He was lying in the bed when I first saw him but, he was up in the recliner when we saw him on rounds. General Appearance: cooperative Resp normal respiratory effort and clear to auscultation bilaterally Resp Narrative: Denies shortness of breath and chest pain. Effort and Inspection: Negative for tachypneic Cardio regular rate, regular rhythm and no gallops GI normal to inspection, nondistended, normoactive bowel sounds, soft to palpation and non-tender GI Narrative: Denies nausea/vomiting/abdominal pain. Eating 75 to 100% of his meals. Had a bowel movement on 05/07/2025 and also had a bowel movement 05/08/2025. The abdomen is obese. Extremity no calf tenderness Extremity Narrative: The left heel is a little red but, no opening in the skin. the heel is a little mushy. No breakdown of the R foot and no redness. General Extremity: edema bilateral (Trace ankle edema. MARSHA hose are in place.) Skin Rashes: no rashes Wound Narrative: The lumbar incision is intact and held together with sharon. There is no jose- incisional erythema, no purulent discharge, no odor and no significant swelling. Neuro CN's II-XII intact bilaterally Speech: speech normal Assessment & Plan Assessment/Plan (1) Debility: (2) Lumbar stenosis with neurogenic claudication: (3) Status post laminectomy with spinal fusion: (4) Low back pain: QUALIFIERS: Chronicity: chronic Back pain laterality: midline S ciatica presence: unspecified whether sciatica present Qualified Code(s): M 54.50 - Low back pain, unspecified; G89.29 - Other chronic pain (5) Acute blood loss as cause of postoperative anemia: (6) Diabetes mellitus, type II: QUALIFIERS: Diabetes mellitus laborer marine terminal insulin use: with laborer marine terminal use Diabetes mellitus complication status: with unspecified complications Qualified Code(s): E11.8 - Type 2 diabetes mellitus with unspecified complications; Z79.4 - laborer marine terminal (current) use of insulin (7) HTN (hypertension): QUALIFIERS: Hypertension type: essential hypertension Qualified Code(s): I10 - Essential (primary) hypertension (8) CKD (chronic kidney disease) stage 3, GFR 30-59 ml/min: QUALIFIERS: Chronic kidney disease stage 3 subtype: stage 3b (GFR 30-44) Qualified Code(s): N18.32 - Chronic kidney disease, stage 3b (9) Obesity (BMI 30-39.9): (10) Constipation: QUALIFIERS: Constipation type: drug induced constipation Q ualified Code(s): K59.03 - Drug induced constipation (11) MINESH (obstructive sleep apnea): PLAN: Plan 1. Continue therapy 2. Discontinue sliding scale insulin. Continue glargine 80 units nightly and metformin 500 mg twice daily. Decrease the Glargine to 74 units.........BS in the low 80's at times and he is on a carb controlled diet while on rehab.......suspect he is non-compliant with diet at home. 3. Schedule Tramadol Q8H through the weekend and then start BID and PRN 4. Made nursing aware of the heel complaints. Will apply heel protectors. 5. will have his significant other come in for family training Tuesday. 6. Check a Vitmain D level and a BMP and CBC on Tuesday Charges/Coding Visit Charges Inpatient E&M: 04185 Subs Hosp L2
--- NOTE | 2025-05-09 13:03 | CASEMGMT ---
Social Work IDT met with patient and best friend (as pt refers to her) for Team meeting. Discussed patient's progress in PT/OT/SN/MD. Educated to Medicare benefit and will provide days once given. Pt voiced wanting to DC home 05/15 as he is hosting Thanksgiving. IDT will determine that DC goal closer. BONNY educated to skilled HHC vs OP. Pt has all DME. Friend is willing to complete therapy training on 05/13, though expressed concern with pt's compliance at home or is not motivated to move. educated on movement is medicine. Pt replied, I think she's [friend] is all wrong and explained his perspective on past surgeries and pain limitation. advised will discuss progress and DC after friend completes training. BONNY will also follow up. 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
[2025-05-09 17:33] VITALS: BP 139/77; PULSE 85; RESP 17; TEMP 36.2; O2SAT 93
[2025-05-09] MEDS: Insulin Glargine-YFGN 100 UNIT/ML Pen 70 UNIT SC (21:54)
--- NOTE | 2025-05-10 03:05 | NURSING ---
Pt 0300 BGT was 90 after 70u of glargin 2200. Will continue to monitor
[2025-05-10 06:00] VITALS: BP 136/78; PULSE 89; RESP 18; TEMP 36.7; O2SAT 92; BMI 35.8
[2025-05-10] MEDS: Senna/Docusate Sodium 1 Tablet 2 TABLET PO ×2 (08:15→21:59)
[2025-05-10] MEDS: Aspirin E.C. 81 MG Tablet PO (08:16)
[2025-05-10] MEDS: Cholecalciferol (Vit D3) 125 MCG CAPSULE (5,000 UNITS) PO (08:16)
--- NOTE | 2025-05-10 10:13 | PN_ITS ---
Subjective Subjective Afebrile VSS - Maintaining appropriate oxygen saturation on RA Oral intake - FOOD excellent...... ate 100% of his breakfast today FLUIDS fair Blood sugar record was reviewed. The at bedtime blood sugar was 100 and we gave him 70 units of glargine. At 3 AM blood sugar was 90. Discussed with nursing - does not want to sit up in the chair. Asking to go back to bed frequently. He tells me he was told at the previous hospital to not sit in the chair for longer than 1 hour........I told him we want him to not sit for longer than 1 hour without getting up and moving. The reason to go back to bed would be if the pain increases or he has pain radiating into his legs. Reviewed the THERAPY notes Medication list reviewed. Objective Data Objective Data Vital Signs: Vital Signs Temp Pulse Resp BP Pulse Ox O2 Del Method O2 Flow Rate 98.1 F 89 18 136/78 H 92 Room Air 0 05/10/25 06:00 05/10/25 06:00 05/10/25 06:00 05/10/25 06:00 05/10/25 06:00 05/10/25 06:00 05/07/25 21:24 FiO2 21 05/07/25 21:24 Oxygen Flow Rate (L/min) 0 Oxygen Delivery Method Room Air Weight: 235 lb 12.8 oz Body Mass Index (BMI) 35.8 Intake & Output: Intake and Output for Last 24 Hours 05/08/25 05/09/25 05/10/25 23:59 23:59 23:59 Intake Total 1330 / 1330 1210 / 1210 400 / 400 Output Total 540 / 540 650 / 650 250 / 250 Balance 790 / 790 560 / 560 150 / 150 Lab / Micro Data 05/08/25 07:24 05/08/25 07:24 Labs: Laboratory Results - last 24 hr 05/09/25 11:15: POC Glucose 102 05/09/25 20:55: POC Glucose 100 05/10/25 03:02: POC Glucose 90 Physical Exam Const alert, oriented x3 and no apparent distress Constitutional Narrative: sitting in the recliner....denies pain. Tells me that his pain is adequately controlled with Tramadol 50 mg Q8H PRN but, the medication makes him sleepy......but he has not had any Tramasol since 05/09 at ? It may be the Gabapentin that is making him sleepy......in conjunction with Robaxin. General Appearance: cooperative Resp clear to auscultation bilaterally Cardio regular rate and regular rhythm Cardio Narrative: Distant heart sounds GI normal to inspection, nondistended, normoactive bowel sounds, soft to palpation and non-tender Extremity no calf tenderness General Extremity: Negative for edema Skin Wound Narrative: Incision is intact with no purulent discharge, no jose-incisional erythema and no significant swelling around the sharon. Assessment & Plan Assessment/Plan (1) Debility: (2) Lumbar stenosis with neurogenic claudication: (3) Status post laminectomy with spinal fusion: (4) Low back pain: QUALIFIERS: Chronicity: chronic Back pain laterality: midline S ciatica presence: unspecified whether sciatica present Qualified Code(s): M 54.50 - Low back pain, unspecified; G89.29 - Other chronic pain (5) Acute blood loss as cause of postoperative anemia: (6) Diabetes mellitus, type II: QUALIFIERS: Diabetes mellitus middle or intermediate school principal insulin use: with middle or intermediate school principal use Diabetes mellitus complication status: with unspecified complications Qualified Code(s): E11.8 - Type 2 diabetes mellitus with unspecified complications; Z79.4 - rat exterminator (current) use of insulin (7) HTN (hypertension): QUALIFIERS: Hypertension type: essential hypertension Qualified Code(s): I10 - Essential (primary) hypertension (8) CKD (chronic kidney disease) stage 3, GFR 30-59 ml/min: QUALIFIERS: Chronic kidney disease stage 3 subtype: stage 3b (GFR 30-44) Qualified Code(s): N18.32 - Chronic kidney disease, stage 3b (9) Obesity (BMI 30-39.9): (10) Constipation: QUALIFIERS: Constipation type: drug induced constipation Q ualified Code(s): K59.03 - Drug induced constipation (11) MINESH (obstructive sleep apnea): PLAN: Plan 1. Continue therapy 2. Decrease the gabapentin to 600 mg twice daily to see if the sleepiness persists. 3. Decrease the glargine to 66 units at bedtime. Continue to monitor blood sugars AC and at bedtime. BS's are dropping with the carb consistent diet. I suspect he is non-compliant with diet at home. Continue metformin 500 mg twice daily. 4. Continue as needed tramadol 50 mg every 8 hours. 5. Continue scheduled Tylenol 6. Encouraged the patient to stay in the chair for longer periods of time unless he is in pain and then to get into bed. I explained we are trying to improve his exercise tolerance. Encouraged him to get up with nursing and ambulate around his room if he has not moved in an hour. Charges/Coding Visit Charges Inpatient E&M: 49420 Subs Hosp L1
[2025-05-10 18:00] VITALS: BP 128/57; PULSE 85; RESP 16; TEMP 37.2; O2SAT 94
[2025-05-10] MEDS: Insulin Glargine-YFGN 100 UNIT/ML Pen 66 UNIT SC (22:00)
[2025-05-11 05:28] VITALS: BP 145/70; PULSE 80; RESP 16; TEMP 36.3; O2SAT 95
[2025-05-11] MEDS: Senna/Docusate Sodium 1 Tablet 2 TABLET PO ×2 (08:17→21:23)
[2025-05-11] MEDS: Cholecalciferol (Vit D3) 125 MCG CAPSULE (5,000 UNITS) PO (08:17)
[2025-05-11] MEDS: Aspirin E.C. 81 MG Tablet PO (08:17)
[2025-05-11 17:57] VITALS: BP 114/67; PULSE 89; RESP 18; TEMP 36.3; O2SAT 94
[2025-05-11] MEDS: Insulin Glargine-YFGN 100 UNIT/ML Pen 66 UNIT SC (21:12)
[2025-05-12 06:00] VITALS: BP 125/68; PULSE 81; RESP 18; TEMP 36.4; O2SAT 92
[2025-05-12] MEDS: Senna/Docusate Sodium 1 Tablet 2 TABLET PO ×2 (08:27→22:46)
[2025-05-12] MEDS: Aspirin E.C. 81 MG Tablet PO (08:27)
[2025-05-12] MEDS: Cholecalciferol (Vit D3) 125 MCG CAPSULE (5,000 UNITS) PO (08:28)
[2025-05-12 18:00] VITALS: BP 125/58; PULSE 83; RESP 16; TEMP 36.7; O2SAT 96
[2025-05-12] MEDS: Insulin Glargine-YFGN 100 UNIT/ML Pen 66 UNIT SC (23:03)
[2025-05-13 06:00] VITALS: BP 157/83; PULSE 89; RESP 18; TEMP 37.4; O2SAT 96
[2025-05-13 06:07] LABS: Hematocrit 26.3 % (40-54); Hemoglobin 8.9 g/dL (13.0-16.5); Immature Granulocytes Count 0.030 X10^3/uL (0.0-0.0); Mean Corp Hgb Conc 33.8 g/dL (32-36); Mean Corpuscular Volume 92.3 fL (80-94); Mean Platelet Vol. 8.8 fl (6.2-12.0); NRBC Flagged by Analyzer 0 % (0-5); Platelet Count 286 K/mm3 (150-450); RBC Distribution Width CV 12.7 % (11.6-14.6); RBC Distribution Width SD 42.4 fl (35.1-43.9); Red Blood Count 2.85 M/mm3 (4.6-6.2); White Blood Count 7.3 K/mm3 (4.4-11.0)
[2025-05-13 06:44] LABS: Anion Gap 11 (5-15); BUN 21 mg/dL (4-19); BUN/Creat Ratio 16.4 RATIO (10-20); Calcium,Total 8.9 mg/dL (7.6-11.0); Carbon Dioxide 24.9 mmol/L (21.0-32.0); Chloride 103 mmol/L (98-108); Estimated Creatinine Clearance 56.42 ml/min (50-250); Glucose 93 mg/dL (70-99); Potassium 4.3 mmol/L (3.3-5.1); Vitamin D,25 Hydroxy 29.6 ng/mL (30-100)
[2025-05-13 08:12] VITALS: BP 118/57; PULSE 90
[2025-05-13] MEDS: Aspirin E.C. 81 MG Tablet PO (08:15)
[2025-05-13] MEDS: Senna/Docusate Sodium 1 Tablet 2 TABLET PO ×2 (08:16→20:53)
[2025-05-13] MEDS: Cholecalciferol (Vit D3) 125 MCG CAPSULE (5,000 UNITS) PO (08:16)
--- NOTE | 2025-05-13 09:19 | PN_ITS ---
Documented by User: TETE Velasquez 05/13/25 09:48 Subjective Subjective slightly elevated temp of 99.4 today. He denies pain, SOB, cough. Will continue to monitor VSS - Maintaining appropriate oxygen saturation on RA currently 96% Oral intake - FOOD excellent...... FLUIDS fair, encouraged fluid intake. Blood sugar record was reviewed. Blood sugar is 93 this morning. I did note that his Vitamin D is low at 29.6, which is only mildly decreased. He is currently receiving 125mcg of D3 daily, will continue. Labs reviewed: D3 is slightly decreased. His BUN is 21 and creatinine is 1.3. He does have CKD and these numbers are normal for him. Discussed with nursing - Pt is wanting to return home before the . SW updated about request. Pt has no complaints today. Lungs are clear and equal bilaterally. He feels that his pain is being well controlled with Tramadol. Reviewed the THERAPY notes Medication list reviewed. Objective Data Objective Data Vital Signs: Vital Signs Temp Pulse Resp BP Pulse Ox O2 Del Method O2 Flow Rate 99.4 F H 90 18 118/57 L 96 Room Air 0 05/13/25 06:00 05/13/25 08:12 05/13/25 06:00 05/13/25 08:12 05/13/25 06:00 05/13/25 06:00 05/07/25 21:24 FiO2 21 05/07/25 21:24 Oxygen Flow Rate (L/min) 0 Oxygen Delivery Method Room Air Weight: 235 lb 12.8 oz Body Mass Index (BMI) 35.8 Intake & Output: Intake and Output for Last 24 Hours 05/11/25 05/12/25 05/13/25 23:59 23:59 23:59 Intake Total 2110 / 2110 1300 / 1300 320 / 320 Output Total 2175 / 2175 1300 / 1300 450 / 450 Balance -65 / -65 0 / 0 -130 / -130 Lab / Micro Data Attestation: I reviewed the patient's lab results. 05/13/25 05:26 05/13/25 05:26 Labs: Laboratory Results - last 24 hr 05/12/25 11:07: POC Glucose 118 H 05/12/25 16:56: POC Glucose 110 H 05/12/25 22:45: POC Glucose 101 05/13/25 05:26: WBC 7.3, RBC 2.85 L, Hgb 8.9 L, Hct 26.3 L, MCV 92.3, MCH 31.2, MCHC 33.8, RDW Std Deviation 42.4, RDW Coeff of Elroy 12.7, Plt Count 286, MPV 8.8, Immature Gran % (Auto) 0.400, Neut % (Auto) 74.2 H, Lymph % (Auto) 12.9 L, Treasure % (Auto) 8.4, Eos % (Auto) 3.4, Baso % (Auto) 0.7, Absolute Neuts (auto) 5.4, Absolute Lymphs (auto) 0.95, Nucleated RBC % 0, Sodium 139, Potassium 4.3, Chloride 103, Carbon Dioxide 24.9, Anion Gap 11, BUN 21 H, Creatinine 1.30 H, Estim Creat Clear Calc 56.42, Est GFR (MDRD) Non-Af 57 L, BUN/Creatinine Ratio 16.4, Glucose 93, Calcium 8.9, Vitamin D 25-Hydroxy 29.6 L 05/13/25 06:50: POC Glucose 92 Physical Exam Const alert, oriented x3 and no apparent distress Constitutional Narrative: sitting in the recliner....denies pain. Tells me that his pain is adequately controlled with Tramadol 50 mg Q8H PRN but, the medication makes him sleepy. May be the Gabapentin that is contributing to his sleepyness along with Robaxin. General Appearance: cooperative HEENT normocephalic Neck General: trachea midline Resp normal respiratory effort, normal air movement and clear to auscultation bilaterally Cardio regular rate and regular rhythm GI normal to inspection, nondistended, normoactive bowel sounds, soft to palpation and non-tender GI Narrative: pt reports BM's every 3 days is normal for him Extremity no calf tenderness General Extremity: Negative for edema Skin Wound Narrative: Incision is intact with no purulent discharge, no jose-incisional erythema and no significant swelling around the sharon. Assessment & Plan Assessment/Plan (1) Debility: (2) Lumbar stenosis with neurogenic claudication: (3) Status post laminectomy with spinal fusion: (4) Low back pain: QUALIFIERS: Back pain laterality: midline Chronicity: chronic S ciatica presence: unspecified whether sciatica present Qualified Code(s): M 54.50 - Low back pain, unspecified; G89.29 - Other chronic pain (5) Acute blood loss as cause of postoperative anemia: (6) Diabetes mellitus, type II: QUALIFIERS: Diabetes mellitus complication status: with unspecified complications Diabetes mellitus supervisor intermediates insulin use: with senior living use Qualified Code(s): E11.8 - Type 2 diabetes mellitus with unspecified complications; Z79.4 - MCC (current) use of insulin (7) HTN (hypertension): QUALIFIERS: Hypertension type: essential hypertension Qualified Code(s): I10 - Essential (primary) hypertension (8) CKD (chronic kidney disease) stage 3, GFR 30-59 ml/min: QUALIFIERS: Chronic kidney disease stage 3 subtype: stage 3b (GFR 30-44) Qualified Code(s): N18.32 - Chronic kidney disease, stage 3b (9) Obesity (BMI 30-39.9): (10) Constipation: QUALIFIERS: Constipation type: drug induced constipation Q ualified Code(s): K59.03 - Drug induced constipation (11) MINESH (obstructive sleep apnea): PLAN: Plan 1. Continue therapy 2. gabapentin was decreased to 600 mg twice daily and daytime sleepiness has improved. 3. Decrease the glargine to 66 units at bedtime. Continue to monitor blood sugars AC and at bedtime. Continue metformin 500 mg twice daily. 4. Continue as needed tramadol 50 mg every 8 hours. 5. Continue scheduled Tylenol 6. Encouraged the patient to stay in the chair for longer periods of time unless he is in pain and then to get into bed. I explained we are trying to improve his exercise tolerance. Encouraged him to get up with nursing and ambulate around his room if he has not moved in an hour. 7. continue D3 125mcg. 8. continue to monitor temps. Charges/Coding Visit Charges Inpatient E&M: 00082 Subs Hosp L2 Documented by User: Dr. Lisa Dimas DO 05/13/25 12:21 Subjective Subjective slightly elevated temp of 99.4 today. He denies pain, SOB, cough. Will continue to monitor VSS - Maintaining appropriate oxygen saturation on RA currently 96% Oral intake - FOOD excellent...... FLUIDS fair, encouraged fluid intake. Blood sugar record was reviewed. Blood sugar is 93 this morning. I did note that his Vitamin D is low at 29.6, which is only mildly decreased. He is currently receiving 125mcg of D3 daily, will continue. Labs reviewed: D3 is slightly decreased. His BUN is 21 and creatinine is 1.3. He does have CKD and these numbers are normal for him. Discussed with nursing - Pt is wanting to return home before the . SW updated about request. Pt has no complaints today. Lungs are clear and equal bilaterally. He feels that his pain is being well controlled with Tramadol. Reviewed the THERAPY notes Medication list reviewed. Has been taking Tramadol 4 X's a day. Theo was seen independently of the SIMULATION ENGINEER. He denies cephalgia, lightheadedness, shaking chills, sweats, calf pain and dysuria. Feels he is ready to go home on Tuesday. His significant other, Osiris, was in for training today and feels that she will be able to manage the care he does need at home. The incision is intact with no jose-incisional erythema, no purulent discharge and no significant swelling around the incision. I agree with the physical exam as documented by the SIMULATION ENGINEER. She and I discussed the plan of care and are in agreement. Gabapentin was decreased from 900 mg to 600 mg twice daily and he feels he is less sleepy than he was on 900 mg twice daily. He is also taking tramadol 4 times a day and Robaxin. He seems more alert today and has been out of bed a lot. All labs personally reviewed. Creatinine is stable. Hemoglobin is stable. Objective Data Lab / Micro Data 05/13/25 05:26 05/13/25 05:26 Assessment & Plan Assessment/Plan (1) Debility: (2) Lumbar stenosis with neurogenic claudication: (3) Status post laminectomy with spinal fusion: (4) Low back pain: QUALIFIERS: Back pain laterality: midline Chronicity: chronic S ciatica presence: unspecified whether sciatica present Qualified Code(s): M 54.50 - Low back pain, unspecified; G89.29 - Other chronic pain (5) Acute blood loss as cause of postoperative anemia: (6) Diabetes mellitus, type II: QUALIFIERS: Diabetes mellitus complication status: with unspecified complications Diabetes mellitus supervisor intermediates insulin use: with supervisor intermediates use Qualified Code(s): E11.8 - Type 2 diabetes mellitus with unspecified complications; Z79.4 - assistant terminal manager (current) use of insulin (7) HTN (hypertension): QUALIFIERS: Hypertension type: essential hypertension Qualified Code(s): I10 - Essential (primary) hypertension (8) CKD (chronic kidney disease) stage 3, GFR 30-59 ml/min: QUALIFIERS: Chronic kidney disease stage 3 subtype: stage 3b (GFR 30-44) Qualified Code(s): N18.32 - Chronic kidney disease, stage 3b (9) Obesity (BMI 30-39.9): (10) Constipation: QUALIFIERS: Constipation type: drug induced constipation Q ualified Code(s): K59.03 - Drug induced constipation (11) MINESH (obstructive sleep apnea): PLAN: Plan 1. Continue therapy 2. continue D3 125mcg. Suspect he has not been taking it every day at home. would recheck a Vitamin D in 4-6 weeks and will discuss compliance with him. 3. continue to monitor temps. 4. I spoke with Osiris and she thinks you would be able to provide the assistance that Theo will need at home. Plan on discharge home Tuesday.
--- NOTE | 2025-05-13 14:42 | CASEMGMT ---
Social Work SW spoke with pt about DC plans. Educated that Medicare approved 10 days which would be DC 05/17. Pt requested originally to DC home 05/15 and IDT agreed to DC date with pt's progress. Pt appreciative. IDT recommending outpatient PT. Pt agreeable. SW verbally provided options. Pt prefers [facility]. SW to fax referral. Family or friend can transport. Pt denied DME needs - SW faxed referral to [facility]. Plan: DC home with friend 05/15, [facility] Elise [facility] [employer]
--- NOTE | 2025-05-13 16:05 | DCINST_ITS ---
Discharge Instructions DC O2, CPAP, BIPAP needs Home O2 Discharge instructions: No Dressing / Incision Discharge Activity: May Not Drive (No driving until you are released to drive by the surgeon. ) and Use Walker (Use a walker or a cane ) Weight Bearing Status: Full weight bearing Keep extremity elevated above heart level: Legs Dressing / Incision Call your doctor if your incision/area has: Continuous Slow Oozing, Sudden Increased Bleeding, Increased Pain/ Swelling, Increased Redness, Foul Smelling Discharge, Swelling at the incision site and - (Make sure to have someone check the incision once a day. If it is red or has any discharge or the incision separates call your primary care doctor or the surgeon.) Call your doctor if you observe: Fever of 101 or Higher, Inability to urinate, Inability to have a bowel movement, Shortness of breath, Dizziness, Fainting spells, Swelling in the ankles, Chest pain, Increased palpitations (irregular heartbeat), Calf discomfort and Uncontrolled pain Suture Line Care: Avoid Pulling/Pushing and Avoid Pinching/Bending Change Dressing in: 1 day (Keep a dry dressing over the incision and change daily. ) Cleanse incision/area with: Soap & Water Follow Up Care When: Follow up appointments have been scheduled for you to see Dr. Hall and Dr. Resendiz (orthopedic surgeon). They are listed later in this document. Test Results: Test results from this visit will be discussed in further detail at your follow- up appointment, if applicable. Pending Tests Upon Discharge: none Discharge Plan Admission Admit Date/Time: 05/07/25 12:26 Primary Reason for Your Visit: Debility due to lumbar fusion. Attending Provider: Lisa Dimas Primary Care Provider: Monica Hall Instructions Patient Instructions: Caring for Your Incision Additional Instructions / Restrictions: 1. Continue to use ice on your low back for pain control. Make sure to get up and take a walk around the house at least once an hour. If you don't keep moving you will get stiff and when you do get up the pain will be worse. Exercise is very important for a good recovery. Do the exercises given to you by the therapists at least once a day. 2. The incision is looking good. There is no sign of infection. 3. You have been taking the Tramadol 3 times a day for pain. I am only allowed to give you a prescription for 1 weeks worth of pain medication since I am not your primary care doctor or the surgeon and you will not be following up with me. If you need more pain medication then you will need to call your PCP or the surgeon. 4. I decreased the dose of the Gabapentin from 900 mg twice a day to 600 mg twice a day. You have done well with 600 mg twice a day and you are not having any significant nerve pain. You are more alert and not sleeping nearly as much during the day. Gabapentin can cause confusion, sleepiness and loss of balance, sue in the elderly. I would stick with the lower dose. You are also taking a muscle relaxer called methocarbamol. This medication also causes you to be sleepy and can cause confusion. Take it only as needed for muscle spasms. Tramadol can also cause sleepiness and confusion. Try and control the pain with Tylenol, ice and movement rather than sitting and taking Tramadol every 8 hours. All of these medications have side affects and they interact with one another. they all can cause confusion, lightheadedness and sleepiness. Be very careful with these meds and try to cut down or eliminate these medications as much as possible. Do not drive while you are still on methocarbamol and tramadol. You will also need to ask Dr. Resendiz when he thinks it would be safe for you to drive. 5. Your Vitamin D level is low and you are supposed to be taking a supplement every day. Vitamin D is very important for bone health and it is sue important after a fusion so that you heal properly and the bones are able to fuse. Make sure you take the vitamin D supplement every day. 6. I suspect you are not compliant with a diabetic diet at home. You came to us on 80 units of insulin daily and we had to decrease it to 66 units since you are on a carb controlled diet on rehab. I suspect you will not be compliant with this diet when you go home and you will likely need to go back up on the insulin dose. You may want to consider trying to lose some weight. This would really help with your back problems and will also help with blood sugar control. 7. If you have any questions after you leave rehab please do not hesitate to call me. Happy Thanksgiving! OFFICE: [phone] CELL: [phone] NURSES STATION ON REHAB: [phone] Discharge Orders/Prescriptions Prescriptions: New gabapentin 300 mg Capsule 600 mg PO BID Qty: 120 0RF Rx Instructions: 2 capsules twice a day sennosides-docusate sodium [Stimulant Laxative Plus] 8.6-50 mg Tablet 2 tab PO BID Qty: 120 0RF Rx Instructions: This is to prevent constipation while you are taking narcotics that tend to cause constipation. tramadol 50 mg Tablet 50 mg PO Q8H PRN PRN (Reason: pain 1-10) Qty: 21 0RF Continued lisinopril 5 mg tablet 5 mg PO DAILY metformin 500 mg tablet 500 mg PO BID insulin glargine [Lantus U-100 Insulin] 100 unit/mL solution 80 unit subcut QHS pravastatin 20 mg tablet 20 mg PO QHS aspirin 81 MG tablet,delayed release (DR/EC) 81 mg PO DAILY Multiple Vitamin-Minerals 1 EACH tablet 1 ea PO DAILY acetaminophen 500 mg tablet 1,000 mg PO Q8H cholecalciferol (vitamin D3) 125 mcg (5,000 unit) capsule 125 mcg PO DAILY Changed methocarbamol 500 mg tablet 500 mg PO BID PRN (Reason: muscle spams ) Qty: 60 0RF Discontinued gabapentin [Neurontin] 300 mg capsule 900 mg PO BID tramadol 50 mg tablet 50 mg PO Q4H PRN PRN (Reason: pain) Referrals / Follow Up: Monica Hall MD [Primary Care Provider, Internal Medicine] - 05/24/25 7:45 am Kevin Resendiz MD [Non-Staff, Orthopedics] - 05/23/25 1:00 pm Disposition Disposition (needs filled in before D/C Order can be placed): Home, Self Care
--- NOTE | 2025-05-13 16:34 | DS.PCM_ITS ---
Providers Date of Admission: 05/07/25 Date of Discharge: 05/15/25 Primary Care Physician: Dr. Monica Hall MD none Reason For Visit: LUMBAR DECOMPRESSION Diagnosis Discharge Diagnosis (1) Debility: Status: Acute Code(s): R53.81 - Other malaise (2) Lumbar stenosis with neurogenic claudication: Status: Chronic Code(s): M48.062 - Spinal stenosis, lumbar region with neurogenic claudication (3) Status post laminectomy with spinal fusion: Status: Acute Code(s): Z98.1 - Arthrodesis status (4) Low back pain: Status: Chronic Code(s): M54.50 - Low back pain, unspecified Qualifiers: Chronicity: chronic Back pain laterality: midline Sciatica presence: u nspecified whether sciatica present Qualified Code(s): M54.50 - Low back pain, unspecified; G89.29 - Other chronic pain (5) Acute blood loss as cause of postoperative anemia: Status: Acute Code(s): D62 - Acute posthemorrhagic anemia (6) Diabetes mellitus, type II: Status: Chronic Code(s): E11.9 - Type 2 diabetes mellitus without complications Qualifiers: Diabetes mellitus extermination inspector insulin use: with extermination inspector use Diabetes mellitus complication status: with unspecified complications Qualified Code(s): E11.8 - Type 2 diabetes mellitus with unspecified complications; Z79.4 - correction (current) use of insulin (7) HTN (hypertension): Status: Chronic Code(s): I10 - Essential (primary) hypertension Qualifiers: Hypertension type: essential hypertension Qualified Code(s): I10 - Essential (primary) hypertension (8) CKD (chronic kidney disease) stage 3, GFR 30-59 ml/min: Status: Chronic Code(s): N18.3 - Chronic kidney disease, stage 3 (moderate) Qualifiers: Chronic kidney disease stage 3 subtype: stage 3b (GFR 30-44) Qualified Code(s): N18.32 - Chronic kidney disease, stage 3b (9) Obesity (BMI 30-39.9): Status: Chronic Code(s): E66.9 - Obesity, unspecified Plan: BMI on rehab is 35.9. (10) Constipation: Status: Acute Code(s): K59.00 - Constipation, unspecified Qualifiers: Constipation type: drug induced constipation Qualified Code(s): K59.03 - Drug induced constipation Plan: Having regular bowel movements on senna/docusate 2 tablets twice daily. Prescription given at discharge. (11) MINESH (obstructive sleep apnea): Status: Chronic Code(s): G47.33 - Obstructive sleep apnea (adult) (pediatric) Plan: Untreated. Plan 1. DC home 05/15/25 2. Follow-up has been scheduled with Dr. Hall and with Dr. Kevin Resendiz (orthopedic surgeon) 3. Will have therapy at [facility] postdischarge. 4. No DME needs Medications at Discharge Home Medications aspirin 81 mg tablet,delayed release 81 mg PO DAILY heart health 07/03/18 multivitamin with minerals (Multiple Vitamin-Minerals tablet) 1 ea PO DAILY supplement 07/03/18 insulin glargine 100 unit/mL subcutaneous solution (Lantus U-100 Insulin) 80 unit subcut QHS diabetes 09/28/24 lisinopril 5 mg tablet 5 mg PO DAILY blood pressure 09/28/24 metformin 500 mg tablet 500 mg PO BID DM 09/28/24 pravastatin 20 mg tablet 20 mg PO QHS Cholesterol 09/28/24 acetaminophen 500 mg tablet 1,000 mg PO Q8H pain 05/07/25 cholecalciferol (vitamin D3) 125 mcg (5,000 unit) capsule 125 mcg PO DAILY supplement 05/07/25 gabapentin 300 mg capsule 600 mg (2 x 300 mg) PO BID #120 caps 05/13/25 methocarbamol 500 mg tablet 500 mg PO BID PRN muscle spams #60 tabs 05/13/25 sennosides 8.6 mg-docusate sodium 50 mg tablet (Stimulant Laxative Plus) 2 tab PO BID #120 tabs 05/13/25 tramadol 50 mg tablet 50 mg PO Q8H PRN PRN pain 1-10 #21 tabs 05/13/25 Weight / BMI Weight Weight: 235 lb 12.8 oz Body Mass Index (BMI) 35.8 ABG / Lab / Microbiology Data 05/13/25 05:26 05/13/25 05:26 Laboratory: Laboratory Results - last 24 hr 05/12/25 16:56: POC Glucose 110 H 05/12/25 22:45: POC Glucose 101 05/13/25 05:26: WBC 7.3, RBC 2.85 L, Hgb 8.9 L, Hct 26.3 L, MCV 92.3, MCH 31.2, MCHC 33.8, RDW Std Deviation 42.4, RDW Coeff of Elroy 12.7, Plt Count 286, MPV 8.8, Immature Gran % (Auto) 0.400, Neut % (Auto) 74.2 H, Lymph % (Auto) 12.9 L, [place] % (Auto) 8.4, Eos % (Auto) 3.4, Baso % (Auto) 0.7, Absolute Neuts (auto) 5.4, Absolute Lymphs (auto) 0.95, Nucleated RBC % 0, Sodium 139, Potassium 4.3, Chloride 103, Carbon Dioxide 24.9, Anion Gap 11, BUN 21 H, Creatinine 1.30 H, Estim Creat Clear Calc 56.42, Est GFR (MDRD) Non-Af 57 L, BUN/Creatinine Ratio 16.4, Glucose 93, Calcium 8.9, Vitamin D 25-Hydroxy 29.6 L 05/13/25 06:50: POC Glucose 92 05/13/25 11:17: POC Glucose 105 D/C Instructions Weight Bearing Status: Full weight bearing Keep extremity elevated above heart level: Legs Call your doctor if your incision/area has: Continuous Slow Oozing, Sudden Increased Bleeding, Increased Pain/ Swelling, Increased Redness, Foul Smelling Discharge, Swelling at the incision site and - (Make sure to have someone check the incision once a day. If it is red or has any discharge or the incision separates call your primary care doctor or the surgeon.) Call your doctor if you observe: Fever of 101 or Higher, Inability to urinate, Inability to have a bowel movement, Shortness of breath, Dizziness, Fainting spells, Swelling in the ankles, Chest pain, Increased palpitations (irregular heartbeat), Calf discomfort and Uncontrolled pain Suture Line Care: Avoid Pulling/Pushing and Avoid Pinching/Bending Cleanse incision/area with: Soap & Water DC O2, CPAP, BIPAP Needs Home O2 Discharge instructions: No Pending Tests Upon Discharge: none When: Follow up appointments have been scheduled for you to see Dr. aHll and Dr. Resendiz (orthopedic surgeon). They are listed later in this document. Discharge Plan Admission Admit Date/Time: 11/18/25 12:26 Attending Provider: Lisa Dimas Primary Care Provider: Monica Hall Instructions Additional Instructions / Restrictions: 1. Continue to use ice on your low back for pain control. Make sure to get up and take a walk around the house at least once an hour. If you don't keep moving you will get stiff and when you do get up the pain will be worse. Exercise is very important for a good recovery. do the exercises given to you by the therapists at least once a day. 2. The incision is looking good. there is no sign of infection. 3. You have been taking the Trama dol 3 times a day for pain. I am only allowed to give you a prescription for 1 weeks worth of pain medication since I am not your primary care doctor or the surgeon and you will not be following up with me. If you need more pain medication then you will need to call your PCP or the surgeon. 4. I decreased the dose of the Gabapentin from 900 mg twice a day to 600 mg twice a day. You have done well with 600 mg twice a day and you are not having any significant nerve pain. Gabapentin can cause confusion, sleepiness and loss of balance. I would stick with the lower dose. you are also taking a muscle relaxer called methocarbamol. This medication also causes you to be sleepy and can cause confusion. Take it only as needed for muscle spasms. Tramadol can also cause sleepiness and confusion. Try and control the pain with Tylenol, ice and movement rather than sitting and taking Tramadol every 8 hours. All of these medications have side affects and they interact with one another. they all can cause confusion, lightheadedness and sleepiness. Be very careful with these meds and try to cut down or eliminate these medications as much as possible. Do not drive while you are still on methocarbamol and tramadol. You will also need to ask Dr. Resendiz when he thinks it would be safe for you to drive. 5. your Vitamin D level is low and you are supposed to be taking a supplement every day. Vitamin D is very important for bone health and it is sue important after a fusion so that you heal properly. Make sure you take the vitamin D supplement every day. 6. I suspect you are not compliant with a diabetic diet at home. You came to us on 80 units of insulin daily and we had to decrease it to 66 units since you are on a carb controlled diet on rehab. I suspect you will not be compliant with this diet when you go home and you will likely need to go back up on the insulin dose. You may want to consider trying to lose some weight. This would really help with your back problems. 7. If you have any questions after you leave rehab please do not hesitate to call me. OFFICE: [phone] CELL: [phone] NURSES STATION ON REHAB: [phone] Discharge Orders/Prescriptions Prescriptions: New gabapentin 300 mg Capsule 600 mg PO BID Qty: 120 0RF Rx Instructions: 2 capsules twice a day sennosides-docusate sodium [Stimulant Laxative Plus] 8.6-50 mg Tablet 2 tab PO BID Qty: 120 0RF Rx Instructions: This is to prevent constipation while you are taking narcotics that tend to cause constipation. tramadol 50 mg Tablet 50 mg PO Q8H PRN PRN (Reason: pain 1-10) Qty: 21 0RF Continued lisinopril 5 mg tablet 5 mg PO DAILY metformin 500 mg tablet 500 mg PO BID insulin glargine [Lantus U-100 Insulin] 100 unit/mL solution 80 unit subcut QHS pravastatin 20 mg tablet 20 mg PO QHS aspirin 81 MG tablet,delayed release (DR/EC) 81 mg PO DAILY Multiple Vitamin-Minerals 1 EACH tablet 1 ea PO DAILY acetaminophen 500 mg tablet 1,000 mg PO Q8H cholecalciferol (vitamin D3) 125 mcg (5,000 unit) capsule 125 mcg PO DAILY Changed methocarbamol 500 mg tablet 500 mg PO BID PRN (Reason: muscle spams ) Qty: 60 0RF Discontinued gabapentin [Neurontin] 300 mg capsule 900 mg PO BID tramadol 50 mg tablet 50 mg PO Q4H PRN PRN (Reason: pain) Referrals / Follow Up: Monica Hall MD [Primary Care Provider, Internal Medicine] - 05/24/25 7:45 am Kevin Resendiz MD [Non-Staff, Orthopedics] - 05/23/25 1:00 pm Disposition Disposition (needs filled in before D/C Order can be placed): Home, Self Care
--- NOTE | 2025-05-13 16:34 | PCM.DC.SUM ---
Providers Date of Admission: 05/07/25 Date of Discharge: 05/15/25 Primary Care Physician: Dr. Monica Hall MD none Reason For Visit: LUMBAR DECOMPRESSION Diagnosis Discharge Diagnosis (1) Debility: Status: Acute Code(s): R53.81 - Other malaise (2) Lumbar stenosis with neurogenic claudication: Status: Chronic Code(s): M48.062 - Spinal stenosis, lumbar region with neurogenic claudication (3) Status post laminectomy with spinal fusion: Status: Acute Code(s): Z98.1 - Arthrodesis status (4) Low back pain: Status: Chronic Code(s): M54.50 - Low back pain, unspecified Qualifiers: Back pain laterality: midline Chronicity: chronic Sciatica presence: unspecified whether sciatica present Qualified Code(s): M54.50 - Low back pain, unspecified; G89.29 - Other chronic pain (5) Acute blood loss as cause of postoperative anemia: Status: Acute Code(s): D62 - Acute posthemorrhagic anemia Plan: Hemoglobin is stable at 8.9 at discharge from rehab. 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 He was placed on a carb controlled diet while on rehab and we had to decrease the insulin to 66 units from 80 units daily. (7) HTN (hypertension): Status: Chronic Code(s): I10 - Essential (primary) hypertension Qualifiers: Hypertension type: essential hypertension Qualified Code(s): I10 - Essential (primary) hypertension Plan: Continue lisinopril 5 mg daily. (8) CKD (chronic kidney disease) stage 3, GFR 30-59 ml/min: Status: Chronic Code(s): N18.3 - Chronic kidney disease, stage 3 (moderate) Qualifiers: Chronic kidney disease stage 3 subtype: stage 3b (GFR 30-44) Qualified Code(s): N18.32 - Chronic kidney disease, stage 3b Plan: Creatinine at discharge from rehab is 1.3 with a GFR of 57 which is consistent with stage IIIa chronic renal failure. (9) Obesity (BMI 30-39.9): Status: Chronic Code(s): E66.9 - Obesity, unspecified Plan: BMI on rehab is 35.9. Weight loss was recommended. (10) Constipation: Status: Acute Code(s): K59.00 - Constipation, unspecified Qualifiers: Constipation type: drug induced constipation Qualified Code(s): K59.03 - Drug induced constipation Plan: Having regular bowel movements on senna/docusate 2 tablets twice daily. Prescription given at discharge. (11) MINESH (obstructive sleep apnea): Status: Chronic Code(s): G47.33 - Obstructive sleep apnea (adult) (pediatric) Plan: Untreated. Overnight trending pulse ox while on rehab showed the oxygen saturation to be 90% or greater 96.46% of the time. There were no desaturations greater than 60 seconds. Plan 1. DC home 05/15/25 2. Follow-up has been scheduled with Dr. Hall and with Dr. Kevin Resendiz (orthopedic surgeon) 3. Will have therapy at [facility] postdischarge. 4. No DME needs 5. No tub baths until the sharon are removed and the incision is healed. May shower. 6. Use a cane. Medications at Discharge Home Medications aspirin 81 mg tablet,delayed release 81 mg PO DAILY heart health 07/03/18 multivitamin with minerals (Multiple Vitamin-Minerals tablet) 1 ea PO DAILY supplement 07/03/18 insulin glargine 100 unit/mL subcutaneous solution (Lantus U-100 Insulin) 80 unit subcut QHS diabetes 09/28/24 lisinopril 5 mg tablet 5 mg PO DAILY blood pressure 09/28/24 metformin 500 mg tablet 500 mg PO BID DM 09/28/24 pravastatin 20 mg tablet 20 mg PO QHS Cholesterol 09/28/24 acetaminophen 500 mg tablet 1,000 mg PO Q8H pain 05/07/25 cholecalciferol (vitamin D3) 125 mcg (5,000 unit) capsule 125 mcg PO DAILY supplement 05/07/25 gabapentin 300 mg capsule 600 mg (2 x 300 mg) PO BID #120 caps 05/13/25 methocarbamol 500 mg tablet 500 mg PO BID PRN muscle spams #60 tabs 05/13/25 sennosides 8.6 mg-docusate sodium 50 mg tablet (Stimulant Laxative Plus) 2 tab PO BID #120 tabs 05/13/25 tramadol 50 mg tablet 50 mg PO Q8H PRN PRN pain 1-10 #21 tabs 05/13/25 Hospital Course Operations - (On 05/03/2025 he underwent lumbar 5 through sacral 1 revision decompression, lumbar 5 through sacral 1 transforaminal lumbar body fusion and posterior lateral instrumented fusion by . ) Procedures None Summary of Care Provided Hospital Course: Theo Carvalho is a 75 YO M with a PMH of DM II, HTN, CRF stage 3, obesity, HLD, OA, prostate cancer (his last treatment was in July of 2023), GERD, nephrolithiasis, MINESH (untreated), lumbar spondylosis with radicular pain into the legs and a hx of LS surgery in the past. On 05/03/25 he underwent a revision of previous lumbar surgery with L5 thru S1 decompression and L5-S1 instrumented posterior lumbar body fusion. When he was ready to be discharged he was requiring more assistance than his significant other, Osiris, could provide at home. He was transferred to the acute inpt rehab unit at [facility] on 05/07/25 for 3 hours of therapy daily to restore function/independence at or near his level prior to surgery. Theo was very drowsy when he arrived on rehab. He was taking Tramadol for pain and was on Robaxin 500 mg twice daily and Gabapentin 900 mg twice daily. We decreased gabapentin from 900 mg twice daily to 600 mg twice daily and he was much more alert for physical therapy. He was more active and was sitting up in the chair more and lying in the bed less during the day. He denied radicular pain with the decrease in the Gabapentin dose. He was placed on a carb control diet at admission to rehab and began having hypoglycemia. Glargine was decreased from 80 units to 66 units and the BS's are well controlled on 66 units. In suspect he is not going to be compliant with diet when he goes home and he will likely need to go back up on the insulin dose. Theo did well on rehab. At the time of DC he is able to do 11 sit to stands in 30 seconds using his upper extremities to rise. He can ascend/descend 8 steps with 2 handrails at mod I and he has ambulated up to 195 feet with a straight cane at mod I/supervision. He is mod I (modified independent) with eating and upper body dressing. He is supervision/set up for grooming, lower body dressing, toilet transfer, toileting. He is standby assist for bathing. Theo's significant other came in for family training prior to DC and thought she would be able to provide the assistance/supervision Theo still needs at [place]. Lab in 2 days prior to discharge revealed a normal white blood cell count of 7.3. Hemoglobin is stable at 8.9 and platelets were within normal limits. He has normochromic normocytic indices. Sodium is 139 and the potassium is 4.3. The BUN is 21 with a creatinine of 1.3 and a GFR of 57 which is consistent with stage IIIa chronic renal failure. Magnesium and phosphorus have been within normal limits. Vitamin D level was 29.6 which is low. He was supposed to be taking 125 mcg of vitamin D daily which is a high dose. Would recheck the Vitamin D level in 4 weeks to ensure it is within a normal range to facilitate lumbar fusion. The importance of taking Vitamin D daily to maintain bone and muscle health was stressed. Theo was discharged home on 05/15/2025. He has follow-up appointment scheduled with Dr. Odonnell and Dr. Kevin Resendiz. He is going to have OP PT at [facility]. He did not need any DME. Physical Exam Const alert and oriented x3 Constitutional Narrative: He was c/o left hip pain 1 day prior to DC. He told me that he has had bursitis in the past and was told nothing could be done about this. Pain improved with Tramadol 50 mg. Has been taking Tramdol 3-4 times a day. General Appearance: cooperative Eyes PERRL, EOMs intact bilaterally, conjunctivae normal and no scleral icterus Neck supple Resp normal respiratory effort and clear to auscultation bilaterally Resp Narrative: Denies shortness of breath and chest pain. Effort and Inspection: able to speak in complete sentences; Negative for tachypneic Cardio regular rate, regular rhythm and no gallops GI normal to inspection, nondistended, normoactive bowel sounds, soft to palpation and non-tender GI Narrative: Denies nausea/vomiting/abdominal pain. Eating 75 to 100% of his meals. Extremity no calf tenderness General Extremity: edema bilateral (Trace ankle edema. MARSHA hose are in place.) Skin Rashes: no rashes Wound Narrative: The lumbar incision is intact and held together with sharon. There is no jose-incisional erythema, no purulent discharge, no odor and no significant swelling. Neuro oriented x3, CN's II-XII intact bilaterally and moves all extremities Speech: speech normal Psych affect normal Weight / BMI Weight Weight: 235 lb 12.8 oz Body Mass Index (BMI) 35.8 ABG / Lab / Microbiology Data 05/13/25 05:26 05/13/25 05:26 Laboratory: Laboratory Results - last 24 hr 05/13/25 16:31: POC Glucose 89 05/13/25 20:51: POC Glucose 143 H 05/14/25 06:17: POC Glucose 88 05/14/25 11:01: POC Glucose 98 D/C Instructions Weight Bearing Status: Full weight bearing Keep extremity elevated above heart level: Legs Call your doctor if your incision/area has: Continuous Slow Oozing, Sudden Increased Bleeding, Increased Pain/ Swelling, Increased Redness, Foul Smelling Discharge, Swelling at the incision site and - (Make sure to have someone check the incision once a day. If it is red or has any discharge or the incision separates call your primary care doctor or the surgeon.) Call your doctor if you observe: Fever of 101 or Higher, Inability to urinate, Inability to have a bowel movement, Shortness of breath, Dizziness, Fainting spells, Swelling in the ankles, Chest pain, Increased palpitations (irregular heartbeat), Calf discomfort and Uncontrolled pain Suture Line Care: Avoid Pulling/Pushing and Avoid Pinching/Bending Cleanse incision/area with: Soap & Water DC O2, CPAP, BIPAP Needs Home O2 Discharge instructions: No Pending Tests Upon Discharge: none When: Follow up appointments have been scheduled for you to see Dr. Hall and Dr. Resendiz (orthopedic surgeon). They are listed later in this document. Meaningful Use Info Meaningful Use Meaningful Use Diagnoses (Choose all that apply): None applicable Discharge Plan Admission Admit Date/Time: 05/07/25 12:26 Primary Reason for Your Visit: Debility due to lumbar fusion. Attending Provider: Lisa Dimas Primary Care Provider: Monica Hall Instructions Patient Instructions: Caring for Your Incision Additional Instructions / Restrictions: 1. Continue to use ice on your low back for pain control. Make sure to get up and take a walk around the house at least once an hour. If you don't keep moving you will get stiff and when you do get up the pain will be worse. Exercise is very important for a good recovery. Do the exercises given to you by the therapists at least once a day. 2. The incision is looking good. There is no sign of infection. 3. You have been taking the Tramadol 3 times a day for pain. I am only allowed to give you a prescription for 1 weeks worth of pain medication since I am not your primary care doctor or the surgeon and you will not be following up with me. If you need more pain medication then you will need to call your PCP or the surgeon. 4. I decreased the dose of the Gabapentin from 900 mg twice a day to 600 mg twice a day. You have done well with 600 mg twice a day and you are not having any significant nerve pain. You are more alert and not sleeping nearly as much during the day. Gabapentin can cause confusion, sleepiness and loss of balance, sue in the elderly. I would stick with the lower dose. You are also taking a muscle relaxer called methocarbamol. This medication also causes you to be sleepy and can cause confusion. Take it only as needed for muscle spasms. Tramadol can also cause sleepiness and confusion. Try and control the pain with Tylenol, ice and movement rather than sitting and taking Tramadol every 8 hours. All of these medications have side affects and they interact with one another. they all can cause confusion, lightheadedness and sleepiness. Be very careful with these meds and try to cut down or eliminate these medications as much as possible. Do not drive while you are still on methocarbamol and tramadol. You will also need to ask Dr. Resendiz when he thinks it would be safe for you to drive. 5. Your Vitamin D level is low and you are supposed to be taking a supplement every day. Vitamin D is very important for bone health and it is sue important after a fusion so that you heal properly and the bones are able to fuse. Make sure you take the vitamin D supplement every day. 6. I suspect you are not compliant with a diabetic diet at home. You came to us on 80 units of insulin daily and we had to decrease it to 66 units since you are on a carb controlled diet on rehab. I suspect you will not be compliant with this diet when you go home and you will likely need to go back up on the insulin dose. You may want to consider trying to lose some weight. This would really help with your back problems and will also help with blood sugar control. 7. If you have any questions after you leave rehab please do not hesitate to call me. Happy Thanksgiving! OFFICE: [phone] CELL: [phone] NURSES STATION ON REHAB: [phone] Discharge Orders/Prescriptions Prescriptions: New gabapentin 300 mg Capsule 600 mg PO BID Qty: 120 0RF Rx Instructions: 2 capsules twice a day sennosides-docusate sodium [Stimulant Laxative Plus] 8.6-50 mg Tablet 2 tab PO BID Qty: 120 0RF Rx Instructions: This is to prevent constipation while you are taking narcotics that tend to cause constipation. tramadol 50 mg Tablet 50 mg PO Q8H PRN PRN (Reason: pain 1-10) Qty: 21 0RF Continued lisinopril 5 mg tablet 5 mg PO DAILY metformin 500 mg tablet 500 mg PO BID insulin glargine [Lantus U-100 Insulin] 100 unit/mL solution 80 unit subcut QHS pravastatin 20 mg tablet 20 mg PO QHS aspirin 81 MG tablet,delayed release (DR/EC) 81 mg PO DAILY Multiple Vitamin-Minerals 1 EACH tablet 1 ea PO DAILY acetaminophen 500 mg tablet 1,000 mg PO Q8H cholecalciferol (vitamin D3) 125 mcg (5,000 unit) capsule 125 mcg PO DAILY Changed methocarbamol 500 mg tablet 500 mg PO BID PRN (Reason: muscle spams ) Qty: 60 0RF Discontinued gabapentin [Neurontin] 300 mg capsule 900 mg PO BID tramadol 50 mg tablet 50 mg PO Q4H PRN PRN (Reason: pain) Referrals / Follow Up: Monica Hall MD [Primary Care Provider, Internal Medicine] - 05/24/25 7:45 am Kevin Resendiz MD [Non-Staff, Orthopedics] - 05/23/25 1:00 pm Disposition Disposition (needs filled in before D/C Order can be placed): Home, Self Care
[2025-05-13 18:00] VITALS: BP 120/60; PULSE 89; RESP 17; TEMP 36.8; O2SAT 97
[2025-05-13 20:40] VITALS: PULSE 89; O2SAT 97
[2025-05-13] MEDS: Insulin Glargine-YFGN 100 UNIT/ML Pen 66 UNIT SC (20:54)
[2025-05-14 06:00] VITALS: BP 133/62; PULSE 79; RESP 15; TEMP 36.3; O2SAT 95
[2025-05-14] MEDS: Senna/Docusate Sodium 1 Tablet 2 TABLET PO ×2 (07:47→19:59)
[2025-05-14] MEDS: Aspirin E.C. 81 MG Tablet PO (07:48)
[2025-05-14] MEDS: Cholecalciferol (Vit D3) 125 MCG CAPSULE (5,000 UNITS) PO (07:49)
[2025-05-14 17:36] VITALS: BP 112/57; PULSE 92; RESP 17; TEMP 36.8
[2025-05-14 19:45] VITALS: PULSE 92; RESP 17; O2SAT 98
[2025-05-14] MEDS: Insulin Glargine-YFGN 100 UNIT/ML Pen 66 UNIT SC (20:15)
[2025-05-15 05:00] VITALS: BP 120/57; PULSE 83; RESP 17; TEMP 36.7; O2SAT 96
[2025-05-15] MEDS: Aspirin E.C. 81 MG Tablet PO (07:37)
[2025-05-15] MEDS: Senna/Docusate Sodium 1 Tablet 2 TABLET PO (07:37)
[2025-05-15] MEDS: Cholecalciferol (Vit D3) 125 MCG CAPSULE (5,000 UNITS) PO (07:37)
--- NOTE | 2025-05-15 11:32 | NURSING ---
DC home with family. discharged instruction, medications and appointments reviewed with pt and family. denies questions or concerns
[2025-05-15 11:36] VITALS: BP 120/57; PULSE 83; RESP 17; TEMP 36.7; O2SAT 96
== END 2025-05-15 11:38 | disposition home or self-care (01) | DRG 560 ==
PROVIDERS: Admitting Provider Internal Medicine; PCP Internal Medicine; Referring Provider Internal Medicine; Visit Provider Internal Medicine
DX: Z47.89 Encounter for other orthopedic aftercare (principal); D62 Acute posthemorrhagic anemia; E11.22 Type 2 diabetes mellitus with diabetic chronic kidney disease; N18.31 Chronic kidney disease, stage 3a; I12.9 Hypertensive chronic kidney disease with stage 1 through stage 4 chronic kidney disease, or unspecified chronic kidney disease; E66.9 Obesity, unspecified; Z79.4 Long term (current) use of insulin; E78.5 Hyperlipidemia, unspecified; G47.33 Obstructive sleep apnea (adult) (pediatric); M48.062 Spinal stenosis, lumbar region with neurogenic claudication; K59.03 Drug induced constipation; K21.9 Gastro-esophageal reflux disease without esophagitis; M51.16 Intervertebral disc disorders with radiculopathy, lumbar region; M47.26 Other spondylosis with radiculopathy, lumbar region; E55.9 Vitamin D deficiency, unspecified; E11.649 Type 2 diabetes mellitus with hypoglycemia without coma; M70.72 Other bursitis of hip, left hip; Z79.82 Long term (current) use of aspirin; Z79.84 Long term (current) use of oral hypoglycemic drugs; G89.29 Other chronic pain; Z68.35 Body mass index [BMI] 35.0-35.9, adult; Z79.899 Other long term (current) drug therapy; Z98.1 Arthrodesis status
CPT/HCPCS: 36415; 80048; 80053; 82306; 82962; 83735; 84100; 85025; 94668; 94762; 97110; 97116; 97162; 97167; 97530; 97535; 97802